=== PATIENT | female | born 2000 | race Two or more races ===

== ENCOUNTER 2025-01-09 20:52 | Emergency (ER) | payer MEDICAID, SELFPAY ==
[2025-01-09 20:53] VITALS: BMI 23.8
[2025-01-09 21:00] VITALS: BP 119/82; PULSE 89; RESP 18; TEMP 37.1; O2SAT 100
--- NOTE | 2025-01-10 04:49 | PD.EDEYE ---
ED Eye Problem RME/HPI General Chief complaint: Eye Problems Stated complaint: LEFT EYE PAIN Time Seen by Provider: 01/09/25 21:23 Arrival date/time: 01/09/25 20:52 24F with no significant PMH presents to ED with 3 weeks of L upper eyelid pain/burning after patient started using a new mascara. Patient denies eye involvement and vision changes. Limitations: no limitations Related Data Previous Rx's ?Medication ?Instructions ?Recorded erythromycin 5 mg/gram (0.5 %) eye 0.5 inch ophthalmic (eye) QID #3.5 01/09/25 ointment grams tacrolimus 0.1 % topical ointment 1 applic topical BID #30 grams 01/09/25 Allergies Allergy/AdvReac Type Severity Reaction Status Date / Time Sulfa (Sulfonamide Allergy Unknown Verified 01/09/25 20:55 Antibiotics) Review of Systems Review of Systems Systems Reviewed: All systems reviewed, normal except as documented Constitutional Constitutional: Reports system reviewed and no additional complaints, except as documented, Denies fever(s) and Denies headache(s) ENT Ears, Nose, Mouth, and Throat: Denies disequilibrium and Denies headache(s) Cardiovascular Cardiovascular: Reports system reviewed and no additional complaints, except as documented, Denies chest pain and Denies dyspnea Respiratory Respiratory: Reports system reviewed and no additional complaints, except as documented, Denies cough and Denies dyspnea Gastrointestinal Gastrointestinal: Reports system reviewed and no additional complaints, except as documented, Denies abdominal pain, Denies nausea and Denies vomiting Integumentary/Breasts Skin/Breast: Reports as per HPI, Reports rash and Reports skin pain Neurologic Neurologic: Reports system reviewed and no additional complaints, except as documented, Denies confusion, Denies disequilibrium and Denies headache(s) Psychiatric Psychiatric: Denies confusion Past Medical History Past Medical History CARDIAC: Negative Congestive Heart Failure RESPIRATORY: Negative Chronic Obstructive Pulmonary Disease (COPD) GENITOURINARY: Negative Renal Disease ENDOCRINE: Negative Diabetes Mellitus Type 1 or Diabetes Mellitus Type 2 Social History SMOKING STATUS: Current some day smoker ED Exam General Limitations: Present no limitations General appearance: Present alert and in no apparent distress Head Head exam: Present atraumatic Eye Eye exam: Present PERRL and EOMI Expanded Eye Exam Eyelids: left: erythema ENT ENT exam: Present normal exam, normal oropharynx and mucous membranes moist Neck Neck exam: Present normal inspection, full ROM and trachea midline Chest Chest inspection: Present normal inspection and symmetric chest wall rise Respiratory Respiratory exam: Present normal lung sounds bilaterally Cardiovascular Cardiovascular exam: Present regular rate, normal rhythm and normal heart sounds Abdominal Exam Abdominal exam: Present soft and normal bowel sounds Extremities Exam Extremities exam: Present normal inspection and full ROM Back Exam Back exam: Present normal inspection and full ROM Neurological Exam Neurological exam: Present alert, oriented X3 and CN II-XII intact Psychiatric Psychiatric exam: Present normal affect and normal mood Skin Skin exam: Present warm, dry, intact and normal color Course Quality Measures none Vital Signs Vital signs: Vital Signs Temperature 98.8 F 01/09/25 21:00 Pulse Rate 89 01/09/25 21:00 Respiratory Rate 18 01/09/25 21:00 Blood Pressure 119/82 01/09/25 21:00 Pulse Oximetry (%) 100 01/09/25 21:00 Oxygen Delivery Method Room Air 01/09/25 21:00 O2 at 100% on RA and WNLs Eye MDM Narrative MDM Narrative:: 24F with no significant PMH presents to ED with 3 weeks of L upper eyelid pain/burning after patient started using a new mascara. Patient denies eye involvement and vision changes. Physical exam reveals red patch on L upper eyelid near eyelashes. Some tenderness. Normal pupil response and clear conjunctiva. Patient is afebrile, calm, and alert. Likely contact dermatitis with possible mild cellulitis on top. Will give ABX cream and non-steroid anti-inflammatory agent. Patient data External records reviewed:: [facility] previous records Clinical information provided by:: patient Social determinants that could affect healthcare access:: none Patient has the following chronic illnesses:: none How is presenting disease/condition affected by chronic disease/condition?: no chronic disease Evaluation data The following diagnostics were reviewed and interpreted by me:: other (specify) (none) Lab and/or radiology exams considered but not ordered:: not ordered Interpretation Summary: n/a Medications / Prescriptions Medications or Prescriptions considered but not ordered:: not ordered Medication administrations:: n/a Consultations Consultation(s) initiated? (list below): No Diagnosis Eye Problem Differential Diagnosis: corneal abrasion, conjunctivitis, acute iritis, hyphema, periorbital cellulitis, subconjunctival hemorrhage, glaucoma, corneal ulcer, ruptured globe and other (contact dermatitis) Most likely diagnosis given after review of the tests above:: contact dermatitis Admission Indicated Admission indicated?: not indicated Admission Request Was there a request for admission?: No Disposition Plan Disposition Plan: Discharge Discharge Attestation Discharge Attestation: The patient and all family members were given an opportunity to ask questions and understood the discharge instructions. Discharge instructions specifically effects, indications for sooner follow up or return to the emergency department, and the expected course of current diagnosis. Patient condition: Stable Discharge Plan Plan Patient Disposition: HOME (Self Care) Disposition Comment: Stable Prescriptions/Referrals Prescriptions/Med Rec: New erythromycin 5 mg/gram (0.5 %) ointment 0.5 inch ophthalmic (eye) QID Qty: 3.5 0RF Rx Instructions: Use on eyelid tacrolimus 0.1 % ointment 1 applic topical BID Qty: 30 0RF Referrals: Temporary Provider,ED [Physician] - In 1 week Problem List Clinical Impression: Contact dermatitis Patient/Caregiver Discharge Instructions Education Materials: ED Contact Dermatitis Additional Instructions: Please follow-up with PCP within 24-48 hours and return immediately if symptoms worsen. Print Language: Citizen Of [place] Stand Alone Forms: Patient Portal Info Letter MILLY/ALHAJI Supervising Physician MIC Supervising Physician: Dr. Bermudez
== END 2025-01-09 21:34 | disposition home or self-care (01) ==
LOC: SERX 21:30
PROVIDERS: Emergency Provider Emergency Medicine
DX: L25.9 Unspecified contact dermatitis, unspecified cause (principal)
CPT/HCPCS: 99281

== ENCOUNTER 2025-01-29 14:38 | Emergency (ER) | payer MEDICAID, SELFPAY ==
[2025-01-29 14:49] VITALS: BP 120/75; PULSE 87; RESP 18; TEMP 37.2; O2SAT 99
--- NOTE | 2025-01-29 15:00 | XR_ITS ---
Examination: Complete OB ultrasound, less than 14 weeks, transabdominal Date and time of exam: January 29, 2025 1506 hours INDICATIONS: Pelvic cramping beginning 2 days ago Technique: Obstetrical ultrasound images less than 14 weeks performed via transabdominal imaging Findings: Uterus 8.9 cm, intrauterine gestational sac 2.0 cm corresponding to 6 weeks 6 days gestational age No pole, no cardiac activity Right ovary 2.4 cm arterial flow Left ovary 2.3 cm arterial flow IMPRESSION: Empty intrauterine gestational sac corresponding to 6 week 6 day gestational age, no pole, no cardiac activity Recommend short-term follow-up transvaginal pelvic sonography to exclude demise
--- NOTE | 2025-01-29 15:30 | PD.EDPREG ---
ED OB Contraction Preg RMI/HPI General Chief complaint: OB/Uterine Contractions Stated complaint: PREG 9 WKS, CRAMPING SINCE YEST Time Seen by Provider: 01/29/25 14:54 Source: patient Arrival date/time: 01/29/25 14:38 24-year-old female with no known medical history presents to the emergency room with a chief complaint of bilateral pelvic pain x 2 days. Patient is currently 9 weeks . She is a G2, P0 Mode of arrival: ambulatory Limitations: no limitations Related Data Previous Rx's ?Medication ?Instructions ?Recorded erythromycin 5 mg/gram (0.5 %) eye 0.5 inch ophthalmic (eye) QID #3.5 01/09/25 ointment grams tacrolimus 0.1 % topical ointment 1 applic topical BID #30 grams 01/09/25 Allergies Allergy/AdvReac Type Severity Reaction Status Date / Time Sulfa (Sulfonamide Allergy Unknown Verified 01/29/25 14:43 Antibiotics) Review of Systems Review of Systems Systems Reviewed: All systems reviewed, normal except as documented Constitutional Constitutional: Reports system reviewed and no additional complaints, except as documented, Denies fatigue, Denies fever(s), Denies headache(s) and Denies weakness Eyes Eyes: Reports system reviewed and no additional complaints, except as documented, Denies blurry vision and Denies change in vision ENT Ears, Nose, Mouth, and Throat: Reports system reviewed and no additional complaints, except as documented, Denies otalgia, Denies headache(s), Denies nasal congestion, Denies throat swelling and Denies vertigo Cardiovascular Cardiovascular: Reports system reviewed and no additional complaints, except as documented, Denies chest pain, Denies dyspnea and Denies dyspnea on exertion Respiratory Respiratory: Reports system reviewed and no additional complaints, except as documented, Denies chest congestion, Denies cough, Denies dyspnea, Denies dyspnea on exertion and Denies wheezing Gastrointestinal Gastrointestinal: Reports system reviewed and no additional complaints, except as documented, Reports abdominal pain, Reports cramping, Denies nausea and Denies vomiting Genitourinary Genitourinary: Reports system reviewed and no additional complaints, except as documented and Reports pelvic pain Musculoskeletal Musculoskeletal: Reports system reviewed and no additional complaints, except as documented and Denies back pain Integumentary/Breasts Skin/Breast: Reports system reviewed and no additional complaints, except as documented and Denies wounds Neurologic Neurologic: Reports system reviewed and no additional complaints, except as documented, Denies confusion, Denies headache(s), Denies lack of coordination, Denies vertigo and Denies weakness Psychiatric Psychiatric: Reports system reviewed and no additional complaints, except as documented, Denies anxiety, Denies confusion, Denies depression, Denies paranoia, Denies suicidal ideation and Denies tactile hallucinations Endocrine Endocrine: Reports system reviewed and no additional complaints, except as documented and Denies fatigue Hematologic/Lymphatic Hematologic/Lymphatic: Reports system reviewed and no additional complaints, except as documented and Denies lymphadenopathy Allergic/Immunologic Allergic/Immunologic: Reports system reviewed and no additional complaints, except as documented, Denies throat swelling, Denies urticaria and Denies wheezing Past Medical History Past Medical History CARDIAC: Negative Congestive Heart Failure RESPIRATORY: Negative Chronic Obstructive Pulmonary Disease (COPD) GENITOURINARY: Negative Renal Disease ENDOCRINE: Negative Diabetes Mellitus Type 1 or Diabetes Mellitus Type 2 Social History SMOKING STATUS: Never smoker ED Exam General Limitations: Present no limitations General appearance: Present alert and in no apparent distress Head Head exam: Present atraumatic Eye Eye exam: Present normal appearance, PERRL and EOMI ENT ENT exam: Present normal exam, normal oropharynx and mucous membranes moist Neck Neck exam: Present normal inspection, full ROM and trachea midline Chest Chest inspection: Present normal inspection and symmetric chest wall rise Respiratory Respiratory exam: Present normal lung sounds bilaterally Cardiovascular Cardiovascular exam: Present regular rate, normal rhythm and normal heart sounds Abdominal Exam Abdominal exam: Present soft, tenderness and normal bowel sounds Abdominal tenderness: Present suprapubic and mild Extremities Exam Extremities exam: Present normal inspection and full ROM Back Exam Back exam: Present normal inspection and full ROM Neurological Exam Neurological exam: Present alert, oriented X3 and CN II-XII intact Psychiatric Psychiatric exam: Present normal affect and normal mood Skin Skin exam: Present warm, dry, intact and normal color Course Quality Measures none Orders Category Date Time Status US OB <= 14 weeks fetus Stat Exams 01/29/25 15:00 Completed ABO/RH Type Stat Lab 01/29/25 15:28 Completed Beta HCG,Quantitative Stat Lab 01/29/25 15:28 Completed CBC Stat Lab 01/29/25 15:28 Completed CMP [Comprehensive Metabolic Panel] Stat Lab 01/29/25 15:28 Completed UA [Urinalysis] Stat Lab 01/29/25 15:48 Completed Vital Signs Vital signs: Vital Signs Temperature 99 F 04/22/25 14:49 Pulse Rate 87 01/29/25 14:49 Respiratory Rate 18 01/29/25 14:49 Blood Pressure 120/75 01/29/25 14:49 Pulse Oximetry (%) 99 01/29/25 14:49 Oxygen Delivery Method Room Air 01/29/25 14:49 O2 saturation 99% with normal limits OB/Uterine Contractions MDM Narrative MDM Narrative:: 24-year-old female with no known medical history presents to the emergency room with a chief complaint of bilateral pelvic pain x 2 days. Patient is currently 9 weeks . She is a G2, P0 Patient is hemodynamically stable and in no apparent distress. Physical examination shows some 4 out of 10 bilateral pelvic pain. The patient denies any vaginal bleeding vaginal spotting or any dysuria. CBC CMP were within normal limits. hCG was 57,523. Pelvic ultrasound was completed and at this time shows an empty intrauterine gestational sac corresponding to 6 weeks and 6 days. There is no pole there is no cardiac activity at this time. I spoke to the patient and told her that she will need a close short-term follow-up with another trance vaginal pelvic ultrasound and more blood work. I spoke to the patient that she will need to follow-up with her [facility] or return to the emergency room in the next 3 days Patient was discharged and educated to follow-up with primary care provider in the next 24 to 48 hours and return to the emergency room for any evidence of worsening signs or symptoms Patient data External records reviewed:: [facility] previous records Clinical information provided by:: patient Social determinants that could affect healthcare access:: none Patient has the following chronic illnesses:: No chronic illness How is presenting disease/condition affected by chronic disease/condition?: no chronic disease Evaluation data The following diagnostics were reviewed and interpreted by me:: lab results and radiology exam(s) Lab and/or radiology exams considered but not ordered:: Labs and radiology exams considered in order Interpretation Summary: OB ultrasound-Findings: Uterus 8.9 cm, intrauterine gestational sac 2.0 cm corresponding to 6 weeks 6 days gestational age No pole, no cardiac activity Right ovary 2.4 cm arterial flow Left ovary 2.3 cm arterial flow IMPRESSION: Empty intrauterine gestational sac corresponding to 6 week 6 day gestational age, no pole, no cardiac activity Recommend short-term follow-up transvaginal pelvic sonography to exclude demise Medications / Prescriptions Medications or Prescriptions considered but not ordered:: No medication given Medication administrations:: No medication given Consultations Consultation(s) initiated? (list below): No Diagnosis OB Contractions Differential Diagnosis: other (Threatened /spontaneous /pelvic pain) Most likely diagnosis given after review of the tests above:: Threatened Admission Indicated Admission indicated?: not indicated Explain why admission is indicated or not indicated:: N/A Admission Request Was there a request for admission?: No Disposition Plan Disposition Plan: Discharge Discharge Attestation Discharge Attestation: The patient and all family members were given an opportunity to ask questions and understood the discharge instructions. Discharge instructions specifically effects, indications for sooner follow up or return to the emergency department, and the expected course of current diagnosis. Patient condition: Stable Discharge Plan Plan Patient Disposition: HOME (Self Care) Disposition Comment: Stable Prescriptions/Referrals Prescriptions/Med Rec: No Action erythromycin 5 mg/gram (0.5 %) ointment 0.5 inch ophthalmic (eye) QID Qty: 3.5 0RF Rx Instructions: Use on eyelid tacrolimus 0.1 % ointment 1 applic topical BID Qty: 30 0RF Referrals: No Primary/Family,Physician [Primary Care Provider] - In 1 week Problem List Clinical Impression: Pelvic pain affecting , , spontaneous threatened Patient/Caregiver Discharge Instructions Education Materials: ED Possible Miscarriage ..., ED Pelvic Pain, Unknown Cause Additional Instructions: Por favor, acuda a moore ginec?logo/obstetra en las pr?ximas 24 a 48 horas. Si no puede cheikh a moore ginec?logo/obstetra en mil plazo, regrese a urgencias en las pr?ximas 72 horas para repetir la ecograf?a y los an?lisis de charo. Si observa alg?n empeoramiento de los signos o s?ntomas, lauren sangrado vaginal, regrese a urgencias inmediatamente. Print Language: [place] Stand Alone Forms: Hilda Award Info., Work/School Release, Patient Portal Info Letter PA/MANAGER RESTAURANT Supervising Physician PA/MANAGER RESTAURANT Supervising Physician: Dr. Edmondson
[2025-01-29 15:48] LABS: Basophils % (Auto) 0 % (0-2.5); Eosinophils % (Auto) 0 % (0-10); Hematocrit 33.5 % (36.0-46.0); Hemoglobin 11.5 g/dL (12.0-16.0); Immature Granulocytes % (Auto) 0 % (0-0); Immature Granulocytes Auto 0.02 Thou/mm3 (0.00-0.00); Lymphocytes # (Auto) 2.4 Thou/mm3 (1.0-4.8); Lymphocytes % (Auto) 32 % (10-50); Mean Corpuscular HGB Conc 34.3 g/dl (31.0-37.0); Mean Corpuscular Hemoglobin 30.5 pg (25.0-35.0); Mean Corpuscular Volume 89 fL (80-100); Monocytes # (Auto) 0.8 Thou/mm3 (0.0-0.8); Monocytes % (Auto) 11 % (0-12); Neutrophils # (Auto) 4.2 Thou/mm3 (1.8-7.7); Neutrophils % (Auto) 56 % (37-80); Nucleated Red Blood Cell % 0 /100 WBC (0); Platelet Count 218 Thou/mm3 (140-440); RDW Standard Deviation 42.4 fL (36.4-46.3); Red Blood Count 3.77 Miln/mm3 (4.00-5.20); White Blood Count 7.5 Thou/mm3 (3.6-11.0)
[2025-01-29 16:03] LABS: Collection Type, Urine Clean Catch; WBC,Urine 0 /hpf (0-5)
[2025-01-29 16:10] LABS: Anion Gap 5 (7-16); BUN/Creatinine Ratio 13 Ratio (12-20); Blood Urea Nitrogen 8 mg/dL (9-23); Carbon Dioxide 22.6 mMol/L (20.0-31.0); Chloride 108 mMol/L (98-107); Creatinine (Component) 0.6 mg/dL (0.6-1.3); Glucose 73 mg/dL (74-106); Osmolality,Calculated 269 (275-295); Potassium 3.5 mMol/L (3.4-5.1); Sodium 136 mMol/L (136-145); eGFR > 60 See Note
[2025-01-29 16:11] LABS: Alanine Aminotransferase 15 U/L (10-49); Albumin, Serum 4.3 gm/dL (3.5-5.0); Albumin/Globulin Ratio 1.6 (1.2-2.2); Alkaline Phosphatase 51 U/L (46-116); Aspartate Amino Transferase 19 U/L (0-34); Bilirubin,Total 0.9 mg/dL (0.3-1.2); Globulin 2.7 gm/dL (2.3-3.5)
[2025-01-29 16:26] LABS: Bacteria,Urine Rare; Bilirubin,Urine Negative (Negative); Blood,Urine Negative (Negative); Clarity,Urine Clear (Clear/Hazy); Color,Urine Colorless (Lt Yel-Yel); Glucose, Urine Negative (Negative); Ketones,Urine Negative (Negative); Leukocyte Esterase,Urine Negative (Negative); Nitrite,Urine Negative (Negative); PH,Urine 6.5 (5.0-7.0); Protein,Urine Negative (Neg - Trace); RBC,Urine 1 /hpf (0-3); Specific Gravity,Urine 1.011 (1.001-1.035); Squamous Epithelial Cell,Urine 1 /hpf (0-5); Urobilinogen,Urine Negative mg/dL (0.0-1.0)
[2025-01-29 16:47] LABS: Beta HCG,Quantitative 57523 mIU/mL (<5.0)
== END 2025-01-29 17:56 | disposition home or self-care (01) ==
PROVIDERS: Nurse Practitioner Family; Emergency Provider Family Medicine
DX: O20.0 Threatened abortion (principal); Z3A.01 Less than 8 weeks gestation of pregnancy
CPT/HCPCS: 36415; 76801; 80053; 81001; 84702; 85025; 86900; 86901; 99284

== ENCOUNTER 2025-02-01 09:48 | Emergency (ER) | payer MEDICAID, SELFPAY ==
[2025-02-01 09:48] VITALS: BMI 23.8
--- NOTE | 2025-02-01 09:51 | XR_ITS ---
Examination: Complete OB ultrasound, less than 14 weeks, transabdominal Date and time of exam: February 01, 2025 1008 hours INDICATIONS: Pelvic sonogram January 29, 2025 M.D. intrauterine gestational sac no pole and no cardiac activity, pelvic cramping this week Technique: Obstetrical ultrasound images less than 14 weeks performed via transabdominal imaging Findings: A normal shaped single intrauterine gestation is present in the uterus. CRL 0.5 cm correspondences 6 weeks 1 day gestational age Cardiac motion 100 bpm Ultrasonographic survey of visible and placental structures unremarkable. Amniotic fluid volume appears appropriate for this estimated gestational age. Right ovary 3.1 cm arterial flow Left ovary 2.7 cm arterial flow IMPRESSION: Viable intrauterine gestation 6 weeks 1 day.
[2025-02-01 09:54] VITALS: BP 120/74; PULSE 82; RESP 18; TEMP 37.1; O2SAT 99; BMI 23.8
--- NOTE | 2025-02-01 11:19 | EDNOTE_ITS ---
<Statement entered by Marina Horner MD - 02/02/25 14:29> As co-signing physician, I was present and available for consult prn. I concur with the plan and care as documented by the midlevel provider. ED Recheck Abnl Lab Rx-RME/HPI General Chief Complaint: Recheck/Abnormal Lab/Rx Stated Complaint: 7weeks OB- BACK FOR BLOOD WORK Time Seen by Provider: 02/01/25 10:10 Arrival date/time: 02/01/25 09:48 24-year-old female presents to the emergency department stating she was instructed to return today for repeat lab work and ultrasound patient was seen 2 days ago for possible threatened Limitations: no limitations Related Data Previous Rx's ?Medication ?Instructions ?Recorded erythromycin 5 mg/gram (0.5 %) eye 0.5 inch ophthalmic (eye) QID #3.5 01/09/25 ointment grams tacrolimus 0.1 % topical ointment 1 applic topical BID #30 grams 01/09/25 Allergies Allergy/AdvReac Type Severity Reaction Status Date / Time Sulfa (Sulfonamide Allergy Unknown Verified 02/01/25 09:51 Antibiotics) Review of Systems Review of Systems Systems Reviewed: All systems reviewed, normal except as documented Constitutional Constitutional: Reports system reviewed and no additional complaints, except as documented, Denies fever(s) and Denies headache(s) Eyes Eyes: Reports system reviewed and no additional complaints, except as documented and Denies blurry vision ENT Ears, Nose, Mouth, and Throat: Reports system reviewed and no additional complaints, except as documented, Denies headache(s), Denies nasal congestion and Denies nasal discharge Cardiovascular Cardiovascular: Reports system reviewed and no additional complaints, except as documented, Denies chest pain and Denies dyspnea Respiratory Respiratory: Reports system reviewed and no additional complaints, except as documented, Denies chest congestion, Denies cough and Denies dyspnea Gastrointestinal Gastrointestinal: Reports system reviewed and no additional complaints, except as documented and Denies abdominal pain Genitourinary Genitourinary: Reports system reviewed and no additional complaints, except as documented, Denies abnormal vaginal bleeding and Reports pelvic pain Integumentary/Breasts Skin/Breast: Reports system reviewed and no additional complaints, except as documented and Denies rash Neurologic Neurologic: Reports system reviewed and no additional complaints, except as documented, Reports as per HPI and Denies headache(s) Past Medical History Past Medical History CARDIAC: Negative Congestive Heart Failure RESPIRATORY: Negative Chronic Obstructive Pulmonary Disease (COPD) GENITOURINARY: Negative Renal Disease ENDOCRINE: Negative Diabetes Mellitus Type 1 or Diabetes Mellitus Type 2 Social History SMOKING STATUS: Never smoker ED Exam General Limitations: Present no limitations General appearance: Present alert and in no apparent distress Head Head exam: Present atraumatic, normocephalic and normal inspection Eye Eye exam: Present normal appearance, PERRL and EOMI; Absent conjunctival injection ENT ENT exam: Present normal exam, normal oropharynx and mucous membranes moist Neck Neck exam: Present normal inspection, full ROM and trachea midline Chest Chest inspection: Present normal inspection and symmetric chest wall rise Respiratory Respiratory exam: Present normal lung sounds bilaterally Cardiovascular Cardiovascular exam: Present regular rate, normal rhythm and normal heart sounds Abdominal Exam Abdominal exam: Present soft and normal bowel sounds; Absent distention, tenderness, guarding, rebound or rigidity Extremities Exam Extremities exam: Present normal inspection and full ROM Back Exam Back exam: Present normal inspection and full ROM Neurological Exam Neurological exam: Present alert, oriented X3 and CN II-XII intact Psychiatric Psychiatric exam: Present normal affect and normal mood Skin Skin exam: Present warm, dry, intact and normal color Course Quality Measures none Orders Category Date Time Status US OB <= 14 weeks fetus Stat Exams 02/01/25 09:51 Completed Beta HCG,Quantitative Stat Lab 02/01/25 10:05 Completed Vital Signs Vital signs: Vital Signs Temperature 98.7 F 02/01/25 09:54 Pulse Rate 82 02/01/25 09:54 Respiratory Rate 18 02/01/25 09:54 Blood Pressure 120/74 02/01/25 09:54 Pulse Oximetry (%) 99 02/01/25 09:54 Oxygen Delivery Method Room Air 02/01/25 09:54 O2 saturation 99% room air with normal limits Recheck / Abnormal Lab / Rx MDM Narrative MDM Narrative:: 24-year-old female presents to the emergency department stating she was instructed to return today for repeat lab work and ultrasound patient was seen 2 days ago for possible threatened On exam patient well-appearing patient does not appear ill or toxic in no acute distress Lab work and ultrasound obtained patient is viable at this time hCG has increased Patient discharged home in no distress to follow-up with [facility] in the next 24 to 48 hours and for any worsening symptoms to return to the ER immediately Patient data External records reviewed:: [facility] previous records Clinical information provided by:: patient Social determinants that could affect healthcare access:: none Patient has the following chronic illnesses:: None How is presenting disease/condition affected by chronic disease/condition?: no chronic disease Evaluation data The following diagnostics were reviewed and interpreted by me:: lab results and radiology exam(s) Lab and/or radiology exams considered but not ordered:: Labs radiology obtain Interpretation Summary: Reviewed by me Medications / Prescriptions Medications or Prescriptions considered but not ordered:: Given no meds Medication administrations:: No meds Consultations Consultation(s) initiated? (list below): No Diagnosis Recheck Differential Diagnosis: other (Threatened , missed , early ) Most likely diagnosis given after review of the tests above:: Early Admission Indicated Admission indicated?: not indicated Admission Request Was there a request for admission?: No Disposition Plan Disposition Plan: Discharge Discharge Attestation Discharge Attestation: The patient and all family members were given an opportunity to ask questions and understood the discharge instructions. Discharge instructions specifically effects, indications for sooner follow up or return to the emergency department, and the expected course of current diagnosis. Patient condition: Stable Discharge Plan Plan Patient Disposition: HOME (Self Care) Disposition Comment: Stable Prescriptions/Referrals Prescriptions/Med Rec: No Action erythromycin 5 mg/gram (0.5 %) ointment 0.5 inch ophthalmic (eye) QID Qty: 3.5 0RF Rx Instructions: Use on eyelid tacrolimus 0.1 % ointment 1 applic topical BID Qty: 30 0RF Referrals: No Primary/Family,Physician [Primary Care Provider] - 02/04/25 Problem List Clinical Impression: Viable Patient/Caregiver Discharge Instructions Education Materials: What Is Care? Additional Instructions: Please follow up with your primary care doctor in the next 24-48hrs for any worsening symptoms return here immediately Print Language: Yoruba Stand Alone Forms: Hilda Award Info., Patient Portal Info Letter PA/RESEARCH GEOLOGIST Supervising Physician PA/ALHAJI Supervising Physician: Dr. Horner
[2025-02-01 11:25] LABS: Beta HCG,Quantitative 71615 mIU/mL (<5.0)
== END 2025-02-01 11:44 | disposition home or self-care (01) ==
PROVIDERS: Nurse Practitioner Primary Care; Emergency Provider Emergency Medicine
DX: O26.891 Other specified pregnancy related conditions, first trimester (principal); R10.2 Pelvic and perineal pain
CPT/HCPCS: 36415; 76801; 84702; 99284

== ENCOUNTER 2025-02-13 23:56 | Emergency (ER) | payer MEDICAID, SELFPAY ==
[2025-02-13 23:57] VITALS: BMI 24.4
[2025-02-14 01:18] VITALS: BP 115/77; PULSE 80; RESP 18; TEMP 36.9; O2SAT 100
--- NOTE | 2025-02-14 01:37 | XR_ITS ---
Examination: OB Transvaginal ultrasound of the pelvis, complete Technique: Transvaginal sonographic images pelvis performed using azul scale imaging Exam date and time: February 14, 2025 0254 hours INDICATIONS: Vaginal bleeding beginning 2 days ago FINDINGS: Uterus 10.7 cm endometrial stripe not visualized pole 0.6 cm corresponds to 6 weeks 3 days gestational age No cardiac motion Mild fluid in cervix Right ovary 2.3 cm arterial flow Left ovary obscured by bowel gas. IMPRESSION: Intrauterine gestation corresponding to 6 weeks 3 days gestational age, however no cardiac activity. Recommend short term follow-up transvaginal pelvic sonography to exclude embryonic demise.
[2025-02-14 02:28] LABS: Basophils % (Auto) 0 % (0-2.5); Eosinophils % (Auto) 0 % (0-10); Hematocrit 32.5 % (36.0-46.0); Hemoglobin 11.3 g/dL (12.0-16.0); Immature Granulocytes % (Auto) 0 % (0-0); Immature Granulocytes Auto 0.01 Thou/mm3 (0.00-0.00); Lymphocytes # (Auto) 2.8 Thou/mm3 (1.0-4.8); Lymphocytes % (Auto) 40 % (10-50); Mean Corpuscular HGB Conc 34.8 g/dl (31.0-37.0); Mean Corpuscular Hemoglobin 30.9 pg (25.0-35.0); Mean Corpuscular Volume 89 fL (80-100); Monocytes # (Auto) 0.7 Thou/mm3 (0.0-0.8); Monocytes % (Auto) 10 % (0-12); Neutrophils # (Auto) 3.6 Thou/mm3 (1.8-7.7); Neutrophils % (Auto) 50 % (37-80); Nucleated Red Blood Cell % 0 /100 WBC (0); Platelet Count 227 Thou/mm3 (140-440); RDW Standard Deviation 40.9 fL (36.4-46.3); Red Blood Count 3.66 Miln/mm3 (4.00-5.20); White Blood Count 7.1 Thou/mm3 (3.6-11.0)
[2025-02-14 03:02] LABS: Alanine Aminotransferase 7 U/L (10-49); Albumin, Serum 4.4 gm/dL (3.5-5.0); Albumin/Globulin Ratio 1.6 (1.2-2.2); Alkaline Phosphatase 56 U/L (46-116); Anion Gap 6 (7-16); Aspartate Amino Transferase 14 U/L (0-34); BUN/Creatinine Ratio 20 Ratio (12-20); Bilirubin,Total 0.4 mg/dL (0.3-1.2); Blood Urea Nitrogen 10 mg/dL (9-23); Calcium 9.1 mg/dL (8.3-10.6); Calcium (Corrected) 9.1 mg/dL (8.5-10.1); Carbon Dioxide 25.6 mMol/L (20.0-31.0); Chloride 105 mMol/L (98-107); Creatinine (Component) 0.5 mg/dL (0.6-1.3); Estimated Creatinine Clearance 135.7 mL/min (>60); Globulin 2.7 gm/dL (2.3-3.5); Glucose 93 mg/dL (74-106); Osmolality,Calculated 272 (275-295); Potassium 3.6 mMol/L (3.4-5.1); Sodium 137 mMol/L (136-145); Total Protein 7.1 gm/dL (5.7-8.2); eGFR > 60 See Note
--- NOTE | 2025-02-14 03:13 | EDNOTE_ITS ---
ED OB Contraction Preg RMI/HPI General Chief complaint: Vaginal Bleeding Stated complaint: VAGINAL BLEEDING, ABD PAIN, 9WKS Time Seen by Provider: 02/14/25 01:36 Arrival date/time: 02/13/25 23:56 24F at approximately 8-9 weeks and with no significant PMH presents to ED with 1 day of pelvic pain/cramping and vaginal bleeding. Limitations: no limitations Related Data Previous Rx's ?Medication ?Instructions ?Recorded erythromycin 5 mg/gram (0.5 %) eye 0.5 inch ophthalmic (eye) QID #3.5 01/09/25 ointment grams tacrolimus 0.1 % topical ointment 1 applic topical BID #30 grams 01/09/25 Allergies Allergy/AdvReac Type Severity Reaction Status Date / Time Sulfa (Sulfonamide Allergy Unknown Verified 02/13/25 23:57 Antibiotics) Review of Systems Review of Systems Systems Reviewed: All systems reviewed, normal except as documented Constitutional Constitutional: Reports system reviewed and no additional complaints, except as documented, Denies fever(s) and Denies headache(s) ENT Ears, Nose, Mouth, and Throat: Denies disequilibrium and Denies headache(s) Cardiovascular Cardiovascular: Reports system reviewed and no additional complaints, except as documented, Denies chest pain and Denies dyspnea Respiratory Respiratory: Reports system reviewed and no additional complaints, except as documented, Denies cough and Denies dyspnea Gastrointestinal Gastrointestinal: Reports system reviewed and no additional complaints, except as documented, Denies abdominal pain, Denies nausea and Denies vomiting Genitourinary Genitourinary: Reports as per HPI, Reports abnormal vaginal bleeding and Reports pelvic pain Neurologic Neurologic: Reports system reviewed and no additional complaints, except as documented, Denies confusion, Denies disequilibrium and Denies headache(s) Psychiatric Psychiatric: Denies confusion Past Medical History Past Medical History CARDIAC: Negative Congestive Heart Failure RESPIRATORY: Negative Chronic Obstructive Pulmonary Disease (COPD) GENITOURINARY: Negative Renal Disease ENDOCRINE: Negative Diabetes Mellitus Type 1 or Diabetes Mellitus Type 2 Social History SMOKING STATUS: Former smoker ED Exam General Limitations: Present no limitations General appearance: Present alert and in no apparent distress Head Head exam: Present atraumatic Eye Eye exam: Present normal appearance, PERRL and EOMI ENT ENT exam: Present normal exam, normal oropharynx and mucous membranes moist Neck Neck exam: Present normal inspection, full ROM and trachea midline Chest Chest inspection: Present normal inspection and symmetric chest wall rise Respiratory Respiratory exam: Present normal lung sounds bilaterally Cardiovascular Cardiovascular exam: Present regular rate, normal rhythm and normal heart sounds Abdominal Exam Abdominal exam: Present soft and normal bowel sounds Extremities Exam Extremities exam: Present normal inspection and full ROM Back Exam Back exam: Present normal inspection and full ROM Neurological Exam Neurological exam: Present alert, oriented X3 and CN II-XII intact Psychiatric Psychiatric exam: Present normal affect and normal mood Skin Skin exam: Present warm, dry, intact and normal color Course Quality Measures none Orders Category Date Time Status US OB transvaginal Stat Exams 02/14/25 01:37 Taken Beta HCG,Quantitative Stat Lab 02/14/25 02:01 Completed CBC Stat Lab 02/14/25 02:01 Completed CMP [Comprehensive Metabolic Panel] Stat Lab 02/14/25 02:01 Completed Urinalysis, C/S if Indicated Stat Lab 02/14/25 01:37 Ordered Vital Signs Vital signs: Vital Signs Temperature 98.4 F 02/14/25 01:18 Pulse Rate 80 02/14/25 01:18 Respiratory Rate 18 02/14/25 01:18 Blood Pressure 115/77 02/14/25 01:18 Pulse Oximetry (%) 100 02/14/25 01:18 Oxygen Delivery Method Room Air 02/14/25 01:18 O2 at 100% on RA and WNLs Vaginal Bleeding MDM Narrative MDM Narrative: 24F at approximately 8-9 weeks and with no significant PMH presents to ED with 1 day of pelvic pain/cramping and vaginal bleeding. Physical exam reveals well-appearing female. Patient is afebrile, calm, and alert. US demise. Beta HCG 25k, much lower than 2 weeks ago. Minimal anemia. O+. Patient data External records reviewed:: [facility] previous records Clinical information provided by:: patient Social determinants that could affect healthcare access:: none Patient has the following chronic illnesses:: none How is presenting disease/condition affected by chronic disease/condition?: no chronic disease Evaluation data The following diagnostics were reviewed and interpreted by me:: lab results and radiology exam(s) Lab and/or radiology exams considered but not ordered:: ordered Interpretation Summary: above Medications / Prescriptions Medications or Prescriptions considered but not ordered:: not ordered Medication administrations:: n/a Consultations Consultation(s) initiated? (list below): No Diagnosis Vaginal Bleeding Differential Diagnosis: missed , threatened , dysfunctional uterine bleeding, menometrorrhagia, incomplete , ectopic without intrauterine , vaginal bleeding and other (incomplete miscarriage) Most likely diagnosis given after review of the tests above:: incomplete miscarriage Admission Indicated Admission indicated?: not indicated Admission Request Was there a request for admission?: No Disposition Plan Disposition Plan: Discharge Discharge Attestation Discharge Attestation: The patient and all family members were given an opportunity to ask questions and understood the discharge instructions. Discharge instructions specifically effects, indications for sooner follow up or return to the emergency department, and the expected course of current diagnosis. Patient condition: Stable Discharge Plan Plan Patient Disposition: HOME (Self Care) Discharge Disposition comment: Stable Prescriptions/Referrals Prescriptions/Med Rec: No Action erythromycin 5 mg/gram (0.5 %) ointment 0.5 inch ophthalmic (eye) QID Qty: 3.5 0RF Rx Instructions: Use on eyelid tacrolimus 0.1 % ointment 1 applic topical BID Qty: 30 0RF Referrals: No Primary/Family,Physician [Primary Care Provider] - In 1 week Problem List Clinical Impression: Incomplete miscarriage Patient/Caregiver Discharge Instructions Education Materials: ED Miscarriage, Incomplete Additional Instructions: Please follow-up with PCP/OBYGN within 24-48 hours and return immediately if symptoms worsen. Print Language: Estonian Stand Alone Forms: Work/School Release, Patient Portal Info Letter PA/BOTTLE WASHER Supervising Physician MILLY/BOTTLE WASHER Supervising Physician: Dr. Bermudez
[2025-02-14 03:35] LABS: Beta HCG,Quantitative 27641 mIU/mL (<5.0)
--- NOTE | 2025-02-14 03:45 | PRELIM_ITS ---
Obstetric ultrasound (transvaginal). February 14, 2025 at 0253 hours Clinical history: Pain/bleeding; 9 weeks Technique: Real-time ultrasound was performed using Duplex scanning including arterial inflow, venous outflow, color and spectral Doppler analysis of the right ovary. Comparison: None. Findings: Uterus is 10.7 x 5.8 x 6.2 cm. Single intrauterine gestation. Small fluid in the cervical canal. No heart motion. Right ovary is 2.1 x 1.6 x 2.3 cm. Left ovary is not visualized. Right ovary is normal Doppler flow. Gestational sac is 2.6 cm in diameter consistent with 7 weeks 4 days. pole is 6 mm long, consistent with 6 weeks 3 days. Normal yolk sac. Impression: Intrauterine gestation with demise. Discussion Details: Results verbally communicated to : Dr. Azar at 03:39 AM 02/14/2025 Report Electronically Signed By: Ryland Seymour 02/14/2025 3:45:01 AM [EST]
== END 2025-02-14 04:15 | disposition home or self-care (01) ==
PROVIDERS: Physician Assistant; Emergency Provider Emergency Medicine
DX: O03.4 Incomplete spontaneous abortion without complication (principal)
CPT/HCPCS: 36415; 76817; 80053; 81001; 84702; 85025; 99284

== ENCOUNTER 2025-02-16 01:11 | Emergency (ER) | payer MEDICAID, SELFPAY ==
[2025-02-16 01:13] VITALS: BMI 24.4
[2025-02-16 01:19] VITALS: BP 117/73; PULSE 81; RESP 19; TEMP 36.6; O2SAT 98
--- NOTE | 2025-02-16 01:25 | PD.EDRME ---
Rapid Medical Screening Exam RME Arrival date/time: 02/16/25 01:11 This is a case of a 24-year-old female who came in in the emergency room due to severe pelvic pain and vaginal bleeding patient had ultrasound in [facility] and noted demise due to severity of pelvic pain this patient decided to start consult here in the emergency room Chief Complaint: Urogenital-Female Time Seen by Provider: 02/16/25 01:16 Vital signs: Vital Signs Temperature 97.8 F 02/16/25 01:19 Pulse Rate 81 02/16/25 01:19 Respiratory Rate 19 02/16/25 01:19 Blood Pressure 117/73 02/16/25 01:19 Pulse Oximetry (%) 98 02/16/25 01:19 Oxygen Delivery Method Room Air 02/16/25 01:19
--- NOTE | 2025-02-16 01:42 | PC.NURSE ---
RECEIVED VERBAL ORDERS FROM ALHAJI BARRON TO STOP LAB AND US ORDERS.
--- NOTE | 2025-02-16 02:04 | PD.EDPREG ---
ED OB Contraction Preg RMI/HPI General Chief complaint: Urogenital-Female Stated complaint: POSSIBLE MISCARRIAGE Time Seen by Provider: 02/16/25 01:16 Arrival date/time: 02/16/25 01:11 This is a case of 34-year-old female who came into the emergency room due to pelvic cramping with mild vaginal spotting patient is a 2 para 0 with 1 miscarriage LMP is unknown patient is irregularly she remembered that her last period was November of this year patient was seen here 3 times initial visit was January 29, 2025 where she was diagnosed to have threatened ultrasound was performed and noted that the patient has intrauterine 6 weeks and 3 days beta-hCG was monitored initial beta-hCG is 57,523 patient returned in January 2024 and the beta-hCG was 71,615 patient returned in the emergency room February 14, 2025 because of vaginal bleeding noted that the ultrasound still on intrauterine 6 weeks and 3 days but no cardiac activity patient beta-hCG went down [id number] she was diagnosed to have incomplete and advised to follow-up with the OB business support manager due to a pelvic cramping and vaginal spotting this patient decided to start consult here in the emergency room Limitations: no limitations RME / HPI RME / HPI Narrative: 02/16/25 01:11 This is a case of a 24-year-old female who came in in the emergency room due to severe pelvic pain and vaginal bleeding patient had ultrasound in [facility] and noted demise due to severity of pelvic pain this patient decided to start consult here in the emergency room Related Data Previous Rx's ?Medication ?Instructions ?Recorded erythromycin 5 mg/gram (0.5 %) eye 0.5 inch ophthalmic (eye) QID #3.5 01/09/25 ointment grams tacrolimus 0.1 % topical ointment 1 applic topical BID #30 grams 01/09/25 Allergies Allergy/AdvReac Type Severity Reaction Status Date / Time Sulfa (Sulfonamide Allergy Unknown Verified 02/13/25 23:57 Antibiotics) Review of Systems Review of Systems Systems Reviewed: All systems reviewed, normal except as documented Constitutional Constitutional: Reports system reviewed and no additional complaints, except as documented Cardiovascular Cardiovascular: Reports system reviewed and no additional complaints, except as documented Respiratory Respiratory: Reports system reviewed and no additional complaints, except as documented Gastrointestinal Gastrointestinal: Reports system reviewed and no additional complaints, except as documented and Reports as per HPI Genitourinary Genitourinary: Reports abnormal vaginal bleeding, Denies dysuria and Reports pelvic pain Neurologic Neurologic: Reports system reviewed and no additional complaints, except as documented Past Medical History Past Medical History CARDIAC: Negative Congestive Heart Failure RESPIRATORY: Negative Chronic Obstructive Pulmonary Disease (COPD) GENITOURINARY: Negative Renal Disease ENDOCRINE: Negative Diabetes Mellitus Type 1 or Diabetes Mellitus Type 2 Social History SMOKING STATUS: Never smoker ED Exam General Limitations: Present no limitations General appearance: Present alert and in no apparent distress Head Head exam: Present atraumatic Eye Eye exam: Present normal appearance, PERRL and EOMI ENT ENT exam: Present normal exam, normal oropharynx and mucous membranes moist Neck Neck exam: Present normal inspection, full ROM and trachea midline Chest Chest inspection: Present normal inspection and symmetric chest wall rise Respiratory Respiratory exam: Present normal lung sounds bilaterally Cardiovascular Cardiovascular exam: Present regular rate, normal rhythm and normal heart sounds Abdominal Exam Abdominal exam: Present soft and normal bowel sounds; Absent distention, tenderness, guarding, rebound, rigidity, diminished bowel sounds, hyperactive bowel sounds, hypoactive bowel sounds, organomegaly, trauma, obturator sign, Patel's sign, Rovsing's sign, tenderness at McBurney's Point or ascites Extremities Exam Extremities exam: Present normal inspection and full ROM Back Exam Back exam: Present normal inspection and full ROM Neurological Exam Neurological exam: Present alert, oriented X3, CN II-XII intact, normal gait and motor sensory deficit Psychiatric Psychiatric exam: Present normal affect and normal mood Skin Skin exam: Present warm, dry, intact and normal color Course Quality Measures none Orders Category Date Time Status US OB <= 14 weeks fetus Stat Exams 02/16/25 01:23 Stop Req Vital Signs Vital signs: Vital Signs Temperature 97.8 F 02/16/25 01:19 Pulse Rate 81 02/16/25 01:19 Respiratory Rate 19 02/16/25 01:19 Blood Pressure 117/73 02/16/25 01:19 Pulse Oximetry (%) 98 02/16/25 01:19 Oxygen Delivery Method Room Air 02/16/25 01:19 Oxygen saturation in room air 98% WNL OB/Uterine Contractions MDM Narrative MDM Narrative:: This is a case of 34-year-old female who came into the emergency room due to pelvic cramping with mild vaginal spotting patient is a 2 para 0 with 1 miscarriage LMP is unknown patient is irregularly she remembered that her last period was November of this year patient was seen here 3 times initial visit was January 29, 2025 where she was diagnosed to have threatened ultrasound was performed and noted that the patient has intrauterine 6 weeks and 3 days beta-hCG was monitored initial beta-hCG is 57,523 patient returned in January 2024 and the beta-hCG was 71,615 patient returned in the emergency room February 14, 2025 because of vaginal bleeding noted that the ultrasound still on intrauterine 6 weeks and 3 days but no cardiac activity patient beta-hCG went down [id number] she was diagnosed to have incomplete and advised to follow-up with the OB business support manager due to a pelvic cramping and vaginal spotting this patient decided to start consult here in the emergency room physical examination patient is awake alert oriented not in distress nontoxic looking not tachycardic not tachypneic afebrile nonhypoxic no signs and symptoms of dehydration no signs and symptoms of sepsis patient abdominal exam is benign nonsurgical no guarding no rebound no rigidity no pelvic tenderness no CVA tenderness no bladder tenderness at this time I discussed with Dr Carbajal regarding patient constipation history and physical examination I was advised not to perform any blood test nor pelvic ultrasound since the patient was here 2 days ago a OB consult was done spoke to Dr. Mercado discussed patient condition history and physical examination relayed the result of the previous blood test and ultrasound since the patient is not having a vaginal bleeding or severe pelvic pain patient will be discharged home with stable condition Tylenol was given for pain patient was advised to follow-up with the OB clinic were Dr. Mercado for possible D&C patient was advised if there is a severe pelvic pain and vaginal bleeding she needs to return in the emergency room immediately or call 911 patient agreed with the treatment plan and discharge patient understood the discharge instruction patient discharged with stable condition and steady gait Patient data External records reviewed:: [facility] previous records Clinical information provided by:: patient Social determinants that could affect healthcare access:: none Patient has the following chronic illnesses:: No chronic illness How is presenting disease/condition affected by chronic disease/condition?: no chronic disease Evaluation data The following diagnostics were reviewed and interpreted by me:: lab results and radiology exam(s) Lab and/or radiology exams considered but not ordered:: Reviewed Interpretation Summary: Not indicated Medications / Prescriptions Medications or Prescriptions considered but not ordered:: Given Medication administrations:: Given Consultations Consultation(s) initiated? (list below): Yes Consultation #1 (Physician, Specialty, Details): Dr Mercado Time: 02:00 Diagnosis OB Contractions Differential Diagnosis: other (Incomplete spontaneous threatened ) Most likely diagnosis given after review of the tests above:: Incomplete threatened spontaneous Admission Indicated Admission indicated?: not indicated Explain why admission is indicated or not indicated:: Not indicated Admission Request Was there a request for admission?: No Admission Attestation Admission request attestation: Not indicated Disposition Plan Disposition Plan: Discharge Discharge Attestation Discharge Attestation: The patient and all family members were given an opportunity to ask questions and understood the discharge instructions. Discharge instructions specifically effects, indications for sooner follow up or return to the emergency department, and the expected course of current diagnosis. Patient condition: Stable Discharge Plan Plan Patient Disposition: HOME (Self Care) Discharge Disposition comment: Stable Prescriptions/Referrals Prescriptions/Med Rec: No Action erythromycin 5 mg/gram (0.5 %) ointment 0.5 inch ophthalmic (eye) QID Qty: 3.5 0RF Rx Instructions: Use on eyelid tacrolimus 0.1 % ointment 1 applic topical BID Qty: 30 0RF Referrals: Mahnaz Newman FNP ([facility]) [Primary Care Provider] - In 1 week Problem List Clinical Impression: Incomplete Patient/Caregiver Discharge Instructions Education Materials: ED Miscarriage, Incomplete Additional Instructions: It is very important to go to OB clinic on Tuesday ( Dr Mercado) to see an OB business support manager phone number [phone] for further evaluation and treatment of incomplete possible D&C for any worsening symptoms vaginal bleeding fever chills pelvic pain or cramping return to the emergency room immediately or call 911 follow-up with your primary care physician in 2 days for reevaluation Print Language: Cambodian Stand Alone Forms: Hilda Award Info., Patient Portal Info Letter MILLY/ALHAJI Supervising Physician MIC Supervising Physician: Dr Carbajal
== END 2025-02-16 02:12 | disposition home or self-care (01) ==
PROVIDERS: Emergency Provider Emergency Medicine; PCP Nurse Practitioner Primary Care
DX: O03.4 Incomplete spontaneous abortion without complication (principal)
CPT/HCPCS: 80053; 84702; 85025; 99281

== ENCOUNTER 2025-02-16 09:15 | Day surgery (SDC) | payer MEDICAID, SELFPAY ==
[2025-02-16] VITALS (8 sets, daily range): BP systolic 94–108; BP diastolic 52–77; PULSE 69–83; RESP 12–20; TEMP 36.2–37.1; O2SAT 98–100; BMI 24.4
--- NOTE | 2025-02-16 09:44 | EDNOTE_ITS ---
ED OB Contraction Preg RMI/HPI General Chief complaint: Vaginal Bleeding Stated complaint: MISCARRIAGE Time Seen by Provider: 02/16/25 09:33 Arrival date/time: 02/16/25 09:15 24-year-old female G2, presents emergency department today for complaints of vaginal bleeding and pelvic pain patient reports that she has been having pain and bleeding intermittently since 29 January. Patient reports no fever nausea or vomiting patient reports that she has increased pain and bleeding today Limitations: no limitations Related Data Previous Rx's ?Medication ?Instructions ?Recorded erythromycin 5 mg/gram (0.5 %) eye 0.5 inch ophthalmic (eye) QID #3.5 01/09/25 ointment grams tacrolimus 0.1 % topical ointment 1 applic topical BID #30 grams 01/09/25 Allergies Allergy/AdvReac Type Severity Reaction Status Date / Time Sulfa (Sulfonamide Allergy Unknown Verified 02/16/25 09:19 Antibiotics) Review of Systems Review of Systems Systems Reviewed: All systems reviewed, normal except as documented Constitutional Constitutional: Reports system reviewed and no additional complaints, except as documented, Denies fever(s) and Denies headache(s) Eyes Eyes: Reports system reviewed and no additional complaints, except as documented and Denies blurry vision ENT Ears, Nose, Mouth, and Throat: Reports system reviewed and no additional complaints, except as documented, Denies headache(s), Denies nasal congestion and Denies nasal discharge Cardiovascular Cardiovascular: Reports system reviewed and no additional complaints, except as documented, Denies chest pain and Denies dyspnea Respiratory Respiratory: Reports system reviewed and no additional complaints, except as documented, Denies chest congestion, Denies cough and Denies dyspnea Gastrointestinal Gastrointestinal: Reports system reviewed and no additional complaints, except as documented and Denies abdominal pain Genitourinary Genitourinary: Reports system reviewed and no additional complaints, except as documented, Reports abnormal vaginal bleeding and Reports pelvic pain Integumentary/Breasts Skin/Breast: Reports system reviewed and no additional complaints, except as documented and Denies rash Neurologic Neurologic: Reports system reviewed and no additional complaints, except as documented, Reports as per HPI and Denies headache(s) Past Medical History Past Medical History CARDIAC: Negative Congestive Heart Failure RESPIRATORY: Negative Chronic Obstructive Pulmonary Disease (COPD) GENITOURINARY: Negative Renal Disease ENDOCRINE: Negative Diabetes Mellitus Type 1 or Diabetes Mellitus Type 2 Social History SMOKING STATUS: Never smoker ED Exam General Limitations: Present no limitations General appearance: Present alert and in no apparent distress Head Head exam: Present atraumatic, normocephalic and normal inspection Eye Eye exam: Present normal appearance, PERRL and EOMI; Absent conjunctival injection ENT ENT exam: Present normal exam, normal oropharynx and mucous membranes moist Neck Neck exam: Present normal inspection, full ROM and trachea midline Chest Chest inspection: Present normal inspection and symmetric chest wall rise Respiratory Respiratory exam: Present normal lung sounds bilaterally Cardiovascular Cardiovascular exam: Present regular rate, normal rhythm and normal heart sounds Abdominal Exam Abdominal exam: Present soft and normal bowel sounds Extremities Exam Extremities exam: Present normal inspection and full ROM Back Exam Back exam: Present normal inspection and full ROM Neurological Exam Neurological exam: Present alert, oriented X3 and CN II-XII intact Psychiatric Psychiatric exam: Present normal affect and normal mood Skin Skin exam: Present warm, dry, intact and normal color Course Quality Measures none Orders Category Date Time Status Patient Condition Routine Admission 02/16/25 09:38 Ordered SDC [Place in Surgical Day Care] Routine Admission 02/16/25 09:39 Active Activity as Tolerated Routine Care 02/16/25 09:37 Ordered COVID-19 Screening Questionnaire NOW Care 02/16/25 09:35 Active Clip Operative Site as Needed X1 Care 02/16/25 09:36 Active Decision to Admit X1 Care 02/16/25 09:35 Active Insert IV NOW Care 02/16/25 09:36 Active May take PO meds w/sips of H2O PRN Care 02/16/25 09:37 Active NPO NOW Care 02/16/25 09:37 Active Obtain Written Consent For: NOW Care 02/16/25 09:37 Active Sequential Compression Device NOW Care 02/16/25 09:38 Active Consult to Gynecology Stat Cons 02/16/25 09:35 Ordered Diet NPO (NOW) Diet 02/16/25 09:37 Active CBC Stat Lab 02/16/25 09:35 Ordered Comprehensive Metabolic Panel Stat Lab 02/16/25 09:35 Ordered Partial Thromboplastin Time Stat Lab 02/16/25 09:35 Ordered Prothrombin Time with INR Stat Lab 02/16/25 09:35 Ordered Type and Screen Stat Lab 02/16/25 09:36 Ordered Ringers Lactated 1000 ml [Lactated Ringers] 1,000 ml Med 02/16/25 09:38 Ordered IV 125 mls/hr Code Status Routine Oth 02/16/25 09:36 Ordered Vital Signs Vital signs: Vital Signs Temperature 98.3 F 02/16/25 09:27 Pulse Rate 81 02/16/25 09:27 Respiratory Rate 16 02/16/25 09:27 Blood Pressure 108/72 02/16/25 09:27 Pulse Oximetry (%) 98 02/16/25 09:27 Oxygen Delivery Method Room Air 02/16/25 09:27 O2 saturation 98% room air with normal limits Vaginal Bleeding MDM Narrative MDM Narrative: 24-year-old female G2, presents emergency department today for complaints of vaginal bleeding and pelvic pain patient reports that she has been having pain and bleeding intermittently since 29 January. Patient reports no fever nausea or vomiting patient reports that she has increased pain and bleeding today I have reviewed the patient's lab work and imaging from previous visits symptoms are consistent with spontaneous most likely incomplete. Consultation: I spoke with Dr. Georges states he will admit the patient to hospital for D&C I reviewed what will happen with the patient patient states understanding At time of admission patient hemodynamically stable in no distress Patient data External records reviewed:: [facility] previous records Clinical information provided by:: patient Social determinants that could affect healthcare access:: none Patient has the following chronic illnesses:: None How is presenting disease/condition affected by chronic disease/condition?: no chronic disease Evaluation data The following diagnostics were reviewed and interpreted by me:: lab results and radiology exam(s) Lab and/or radiology exams considered but not ordered:: Labs radiology obtain Interpretation Summary: Reviewed by me Medications / Prescriptions Medications or Prescriptions considered but not ordered:: Given Medication administrations:: Medication Administration History Lactated Ringer's (Lactated Ringers) 1,000 mls @ 125 mls/hr IV .Q8H GAMAL Stop: 03/18/25 09:37 Given Consultations Consultation(s) initiated? (list below): Yes Consultation #1 (Physician, Specialty, Details): Dr. Georges Diagnosis Vaginal Bleeding Differential Diagnosis: missed and threatened Most likely diagnosis given after review of the tests above:: Missed Admission Indicated Admission indicated?: indicated Admission Request Was there a request for admission?: Yes Admission Attestation Admission request attestation: Discussed case with [] from Hospitalist service regarding admission. Discussed patients ED course, exam findings, labs, and radiology results. The Hospitalist [agrees,declines] to accept the patient for admission. Disposition Plan Disposition Plan: Admit Discharge Plan Plan Patient Disposition: Admit Acute Care w/in Hospital Discharge Disposition comment: Stable Prescriptions/Referrals Prescriptions/Med Rec: No Action erythromycin 5 mg/gram (0.5 %) ointment 0.5 inch ophthalmic (eye) QID Qty: 3.5 0RF Rx Instructions: Use on eyelid tacrolimus 0.1 % ointment 1 applic topical BID Qty: 30 0RF Problem List Clinical Impression: Incomplete miscarriage, Vaginal bleeding, Pelvic pain Patient/Caregiver Discharge Instructions Print Language: Uzbek Stand Alone Forms: Hilda Award Info., Patient Portal Info Letter PA/CABIN CLEANER Supervising Physician PA/CABIN CLEANER Supervising Physician: Dr. torrez
--- NOTE | 2025-02-16 10:31 | PC.NURSE ---
REPORT GIVEN TO OR NURSE, PATIENT TAKEN TO SURGERY AT THIS TIME.
--- NOTE | 2025-02-16 10:32 | ESHP_ITS ---
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 She initially presented on January 29, 2025, with complaints of vaginal bleeding in early . During her first visit on January 29, Lala's serum hCG was 57,523, and an ultrasound showed an early intrauterine gestational sac corresponding to 6 weeks and 6 days, with no pole or cardiac activity. She returned on February 01, 2025, when a viable intrauterine gestation of 6 weeks and 1 day was noted, with cardiac motion of 100 bpm and a serum hCG of 71,615. Today, Lala reports passing some blood and tissues at home. Her current serum hCG is 27,641, significantly lower than previous values. A transvaginal ultrasound today shows an intrauterine gestation corresponding to 6 weeks and 3 days with no cardiac activity, indicating a loss. Review of Systems Genitourinary: Positive for vaginal bleeding. Meds Home Medications and Allergies Allergies Allergy/AdvReac Type Severity Reaction Status Date / Time Sulfa (Sulfonamide Allergy Unknown Verified 02/16/25 09:19 Antibiotics) Exam - MET[employer]ING [employer] WORKER Vital Signs Temp Pulse Resp BP Pulse Ox O2 Del Method 98.3 F 81 16 108/72 98 Room Air 02/16/25 09:27 02/16/25 09:27 02/16/25 09:27 02/16/25 09:27 02/16/25 09:27 02/16/25 09:27 Constitutional Constitutional: no acute distress Routine HEENT Exam Head: Present normocephalic and atraumatic Eye: Present EOMI and PERRL ENT: Present mucous membranes moist Routine Neck Exam Neck: Present supple and trachea midline Routine Respiratory Exam Respiratory: Present chest non-tender, lungs clear, normal breath sounds and no resp distress Routine Cardiovascular Exam Cardiovascular: Present RRR Routine Abdominal Exam Abdominal: Present soft and normoactive bowel sounds Routine Extremities Exam Extremities: Present full ROM Routine Skin Exam Skin: Present intact and dry Routine Neurological Exam Neurological: Present alert, oriented X3 and CN II-XII intact Routine Psychiatric Exam Psychiatric: Present normal affect and normal thought process 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 Labs Labs: Laboratory, Imaging, and Diagnostic Test Results - Date: 01/29/2025 - Serum hC,523 - Ultrasound: Early intrauterine gestational sac corresponding to 6 weeks and 6 days, no pole, no cardiac activity - Date: 02/01/2025 - Serum hC,615 - Ultrasound: Viable intrauterine gestation, 6 weeks and 1 day, cardiac motion of 100 bpm - Date: 02/16/2025 (Today) - Serum hC,641 - Hemoglobin: 11.3 g/dL - Transvaginal ultrasound: Intrauterine gestation corresponding to 6 weeks and 3 days with no cardiac activity Assessment and Plan Assessment and plan (1) Incomplete : Status: Acute Assessment and plan: Lala, a 24-year-old , presents to the ER for the 5th time in 2 weeks with concerns related to early and vaginal bleeding. Early Loss Assessment: Patient initially presented on 01/29/2025 with vaginal bleeding in early . Serum hCG was 57,523 with ultrasound showing early gestational sac corresponding to 6 weeks 6 days, no pole, no cardiac activity. On 02/01/2025, ultrasound showed viable intrauterine gestation at 6 weeks 1 day with cardiac motion of 100 bpm, and serum hCG was 71,615. Today's presentation (02/16/2025) shows serum hCG of 27,641, with transvaginal ultrasound revealing intrauterine gestation corresponding to 6 weeks 3 days with no cardiac activity. Patient reports passing blood and tissue at home. These findings are consistent with early loss, likely a missed . Plan: - Perform dilation and curettage (D&C) procedure - Informed consent obtained: explained procedure involves clearing uterine contents vaginally under anesthesia, takes approximately 5 minutes, no external incisions or sutures required - Patient to remain NPO - Discharge home approximately one hour post-procedure - Hemoglobin 11.3 g/dL, continue to monitor Quality Measures Quality Measures none
[2025-02-16 10:40] LABS: Basophils % (Auto) 0 % (0-2.5); Eosinophils % (Auto) 1 % (0-10); Hematocrit 33.6 % (36.0-46.0); Hemoglobin 11.8 g/dL (12.0-16.0); Immature Granulocytes % (Auto) 0 % (0-0); Immature Granulocytes Auto 0.01 Thou/mm3 (0.00-0.00); Lymphocytes # (Auto) 1.9 Thou/mm3 (1.0-4.8); Lymphocytes % (Auto) 38 % (10-50); Mean Corpuscular HGB Conc 35.1 g/dl (31.0-37.0); Mean Corpuscular Hemoglobin 30.7 pg (25.0-35.0); Mean Corpuscular Volume 88 fL (80-100); Monocytes # (Auto) 0.4 Thou/mm3 (0.0-0.8); Monocytes % (Auto) 9 % (0-12); Neutrophils # (Auto) 2.6 Thou/mm3 (1.8-7.7); Neutrophils % (Auto) 52 % (37-80); Nucleated Red Blood Cell % 0 /100 WBC (0); Platelet Count 267 Thou/mm3 (140-440); RDW Standard Deviation 39.9 fL (36.4-46.3); Red Blood Count 3.84 Miln/mm3 (4.00-5.20)
[2025-02-16 11:13] LABS: Alanine Aminotransferase 9 U/L (10-49); Albumin, Serum 4.7 gm/dL (3.5-5.0); Albumin/Globulin Ratio 1.8 (1.2-2.2); Alkaline Phosphatase 51 U/L (46-116); Anion Gap 8 (7-16); Aspartate Amino Transferase 14 U/L (0-34); BUN/Creatinine Ratio 17 Ratio (12-20); Bilirubin,Total 1.2 mg/dL (0.3-1.2); Blood Urea Nitrogen 10 mg/dL (9-23); Calcium 8.9 mg/dL (8.3-10.6); Calcium (Corrected) 8.9 mg/dL (8.5-10.1); Carbon Dioxide 22.8 mMol/L (20.0-31.0); Chloride 107 mMol/L (98-107); Creatinine (Component) 0.6 mg/dL (0.6-1.3); Estimated Creatinine Clearance 113.1 mL/min (>60); Globulin 2.6 gm/dL (2.3-3.5); Glucose 89 mg/dL (74-106); Osmolality,Calculated 273 (275-295); Potassium 3.4 mMol/L (3.4-5.1); Sodium 138 mMol/L (136-145); Total Protein 7.3 gm/dL (5.7-8.2); eGFR > 60 See Note
--- NOTE | 2025-02-16 11:17 | ESOP_ITS ---
Operative Note - [facility] Procedure Date of procedure: 02/16/25 Procedure Performed: Suction dilatation and curettage Indication: 24-year-old -0-2-0 with missed at 6 weeks Anesthesia type: General Procedure description: Informed consent was obtained and the patient was taken to the operating room. Identity was confirmed using two patient identifiers. The patient was positioned on the operating table, and general anesthesia was administered. She was then placed in the dorsal lithotomy position using Dong stirrups. The perineum was prepped and draped in the usual sterile fashion. A straight catheter was used to empty the bladder. A weighted speculum was placed in the posterior vaginal fornix, and a right- angle retractor was used to retract the anterior vaginal wall. An atraumatic grasper was used to gently grasp the anterior lip of the cervix, which was placed under traction. Cervical length from the external to internal os was assessed, and a uterine sound was used to measure uterine depth. The cervix was noted to be dilated to approximately 6 mm. A 6 mm suction cannula was introduced through the cervical os, and multiple gentle passes were performed until evacuation of all tissue and blood clots was complete. Endometrial grating was palpated, and the uterus was noted to have contracted appropriately. The suction cannula was removed, and a gentle curettage was performed using a standard curette. All instruments were then withdrawn. Uterine bleeding was minimal. The atraumatic grasper was removed from the cervix, which was visualized and found to be hemostatic. The speculum was removed from the vaginal canal. The patient was then cleaned, undraped, and taken out of the lithotomy position. General anesthesia was reversed, and the patient was transferred to the recovery room in stable and awake condition. The procedure was well tolerated. All instrument, sponge, and lap counts were correct ?2. Specimen: other (POC) Estimated blood loss (ml): 100 Complications: none Surgical staff Operation Date: 02/16/25 10:45 <No data on this case meets the specified criteria> Diagnosis Discharge Diagnosis (1) Incomplete : Status: Acute Problem List Completed Was Problem List Reviewed/Reconciled?: Yes
--- NOTE | 2025-02-16 11:22 | SUR.PHASEI ---
1122 Patient arrived to recovery resting comfortably in [facility], sleeping comfortably able to arouse then drifts back to sleep, on oxygen 6L via oxy mask, breathing unlabored, vital signs stable, denies pain, dressing intact to vaginal area; peripad, no bleeding noted, report received from Josh DAMON and Dr. Hwang
[2025-02-16 11:26] LABS: Partial Thromboplastin Time 27.7 Seconds (22.0-36.0); Prothrombin Time 11.4 Seconds (9.0-12.2)
--- NOTE | 2025-02-16 11:50 | SUR.PHASEII ---
1150 patients at bedside with patient
[2025-02-16] MEDS: ACETAMINOPHEN IVPB 1,000 MG/100 ML VIAL 250 MG IV (11:53)
--- NOTE | 2025-02-16 11:55 | SUR.PHASEII ---
4902 Patient sitting up eating ice chips, tolerating well
--- NOTE | 2025-02-16 12:30 | SUR.PHASEII ---
1230 Patient meets discharge criteria from recovery, awake and alert, breathing unlabored, vital signs stable, dressing intact; no bleeding noted, patient shared her cramping has decreased and tolerable now, drinking water; tolerated well denies nausea, discharge instructions given with the assistance of the telephone interpreter Natalie ID#[id number] to patient and patients , signed discharge instructions. Patient given all her belongings prior to discharge, transported via wheelchair and left in a private vehicle.
== END 2025-02-16 12:30 | disposition home or self-care (01) ==
LOC: SERX 10:14 → S2EX 10:16
PROVIDERS: Nurse Practitioner Primary Care; Emergency Provider Family Medicine; Referring Provider Obstetrics & Gynecology; Visit Provider Obstetrics & Gynecology
PROC: (CPT 58120; principal; 2025-02-16 10:30)
DX: O03.4 Incomplete spontaneous abortion without complication (principal); Z3A.01 Less than 8 weeks gestation of pregnancy
CPT/HCPCS: 59812; 36415; 80053; 85025; 85610; 85730; 86850; 86900; 86901; 99285; A4217; J0131; J1100; J1885; J2210; J2250; J2405; J2704; J3010

== ENCOUNTER 2025-02-26 08:53 | Outpatient (AMB) | payer MEDICAID, SELFPAY ==
[2025-02-26 09:05] VITALS: BP 122/76; PULSE 76; RESP 14; TEMP 36.6; O2SAT 98; BMI 24.8
--- NOTE | 2025-02-26 09:05 | AMB.GYNCLNOT ---
Vital Signs 02/26/25 09:05 Height 1.52 m Height Method Stated Weight 57.663 kg Weight Measurement Method Standing Scale BMI 24.8 BP 122/76 Blood Pressure Source Automatic Cuff Blood Pressure Location Right Upper Arm Position Sitting Respiration 14 Pulse 76 Pulse Source Monitor Temp 97.8 F Temp Source Oral Pulse Oximetry (%) 98 Oxygen Delivery Method Room Air Allergies/Home Meds Allergies & Medications Allergies Sulfa (Sulfonamide Antibiotics) Allergy (Unknown, Verified 02/26/25 09:06) Medication Reconciliation erythromycin 5 mg/gram (0.5 %) eye ointment 0.5 inch ophthalmic (eye) QID #3.5 grams 01/09/25 [Rx Confirmed 02/26/25] tacrolimus 0.1 % topical ointment 1 applic topical BID #30 grams 01/09/25 [Rx Confirmed 02/26/25] Intake Visit Data Collection New Patient or Established: Established Patient (seen at [facility] within 3 years) Reason for Visit:: Postoperative visit following dilatation and curettage for incomplete Seen by Clinical Staff ONLY (RN/MA): No Agricultural Education Teacher Required: Yes Agricultural Education Teacher's name/title: HIPOLITODRA MARTIN Do You Feel Safe at Home: Yes Authorities Contacted: N/A PCP or OBGYN visit in last 3 months: Yes Hx Now: No Are you currently on any form of Control: No Pain Present Currently: Yes Pain Location: Abdomen Pain Scale Used: Granados-Chun/Numerical Pain scale:: 2 Smoking Status Smoking Status: Never smoker 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 Menstrual regularity: regular Flow: normal Monthly: Yes How many days does period last: 5 Age at menarche: 10 Currently sexually active: No If not currently sexually active, have you ever been sexually active: Yes 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 1. Little interest or pleasure in doing things: several days 2. Feeling down, depressed, or hopeless: not at all Total score: 1 PHQ-9 3. Trouble falling or staying asleep, or sleeping too much: Not at all 4. Feeling tired or having little energy: Not at all 5. Poor appetite or overeating: Not at all 6. Feeling bad about yourself - or that you are a failure or have let yourself or your family down: Not at all 7. Trouble concentrating on things, such as reading the newspaper or watching television: Not at all 8. Moving or speaking so slowly that other people could have noticed? - Or the opposite - being so fidgety or restless that you have been moving around a lot more than usual: not at all 9. Thoughts that you would be better off or of hurting yourself in some way: Not at all Total score: 1 Source: Developed by Drs. Shar Lay, Marjorie Stacy, Joe Leblanc and colleagues, with an educational blanca from [employer]. Depression screen completed yes Social History Tobacco History Smoking Status: Never smoker Domestic Abuse History Do You Feel Safe at Home: Yes History of Present Illness HPI Narrative Lala Vidal, a 24-year-old female, presents for a postoperative visit following a dilatation and curettage (D&C) for an incomplete performed on February 16, 2025. The patient was initially seen in the emergency room before undergoing the procedure. Since the surgery, Lala reports that her bleeding has slowed down or stopped. She confirms that she has completed all prescribed medications, including ibuprofen, which she was advised she no longer needs to take. The patient does not report any specific complaints or concerns during this follow-up visit. Regarding future family planning, Lala indicates that she is not currently interested in starting control and may be considering trying for . She was advised that she could start trying as soon as she gets her next menstrual period. Obstetric History - GPAL: A1 L0 - history: - Recent incomplete , underwent dilatation and curettage on February 16, 2025 - Pathology report confirmed products of conception with chorionic villi Medical History - Emergency room visit for incomplete , leading to subsequent dilatation and curettage Surgical History - Dilatation and curettage for incomplete on February 16, 2025 Medications and Supplements - Ibuprofen - Finished - Vitamins Review of Systems Genitourinary: Positive for decreased vaginal bleeding. Review of Systems Review of Systems Systems Reviewed: All systems reviewed, normal except as documented Exam General General Appearance: alert, in no apparent distress and healthy appearing Head Head exam: atraumatic Neck Neck exam: Present normal inspection and trachea midline Chest Chest inspection: Present normal inspection and symmetric chest wall rise External exam: Present normal external exam; Absent tenderness Neuro Neurological exam: Present oriented X3 Psych Psychiatric exam: Present normal affect and normal mood Results Objective Laboratory: - Date: 02/16/2025 - Pathology report (surgical specimen): - Products of conception with chorionic villi - Degenerative changes - Negative for proliferation or significant atypia - Benign decidual tissue with necroinflammatory debris and fibrin Office Procedures OB Clinic LOC & Office Proc's Nursing/Assessment Patient Status: Established Patient OB Clinic Nursing Assessment: Medication Reconciliation, Update PMH in EMR and Vital Signs OB Clinic Coordination of Care: Complex Care and Chronic Disease 1-5, Consent,records obtained, informed consent, Education Simp Pt/Fam, Lab and Imaging orders, Results/Orders obtained and Staff clarify orders Established Patient Charge Established Patient Point Assignment: 105 Established Patient Point Charge: EP Level 3 (80-115) Assessment & Plan Diagnosis / Problem List (1) Pelvic pain: Status: Acute (2) Incomplete miscarriage: Status: Acute (3) Vaginal bleeding: Status: Acute Plan Lala Vidal, 24-year-old female, presenting for postoperative visit following dilatation and curettage for incomplete on February 16, 2025. Status post dilatation and curettage for incomplete Assessment: Patient underwent dilatation and curettage on February 16, 2025, for incomplete . Pathology report from the surgical specimen showed products of conception with chorionic villi, degenerative changes, negative for proliferation or significant atypia, benign decidual tissue with necroinflammatory debris, and fibrin. Patient reports bleeding has slowed down or stopped and has completed all prescribed medications. Plan: - Discontinue ibuprofen - Patient may use tampons as needed - Recommend continuing vitamins - Patient may attempt conception after next menstrual period - Return to clinic as needed
== END 2025-02-26 10:00 | disposition home or self-care (01) ==
LOC: HODSOBC 08:53
PROVIDERS: Supervising Provider Obstetrics & Gynecology; Visit Provider Obstetrics & Gynecology
DX: O03.4 Incomplete spontaneous abortion without complication (principal); Z98.890 Other specified postprocedural states
CPT/HCPCS: 99213; G0463

== ENCOUNTER 2025-06-24 08:07 | Outpatient (AMB) | payer MEDICAID, SELFPAY ==
--- NOTE | 2025-06-24 08:12 | OBCLNT_ITS ---
Vital Signs 06/24/25 08:30 Height 1.52 m Height Method Stated Weight 58.57 kg Weight Measurement Method Standing Scale BMI 25.3 BP 121/77 Blood Pressure Source Automatic Cuff Blood Pressure Location Left Upper Arm Position Sitting Respiration 16 Pulse 88 Pulse Source Monitor Temp 97.9 F Temp Source Oral Pulse Oximetry (%) 98 Oxygen Delivery Method Room Air Allergies/Home Meds Allergies & Medications Allergies Sulfa (Sulfonamide Antibiotics) Allergy (Unknown, Verified 06/24/25 08:31) Medication Reconciliation ondansetron HCl 4 mg tablet 4 mg PO Q8H PRN nausea and vomiting #60 tabs 06/24/25 [Rx] vits no.130-ferrous fum 27 mg iron-folic acid 800 mcg tablet ( Vitamin) 1 tab PO DAILY #60 tabs 06/24/25 [Rx] Intake Visit Data Collection New Patient or Established: Established Patient (seen at [facility] [place] within 3 years) Reason for Visit:: INITIAL CARE Seen by Clinical Staff ONLY (RN/MA): No 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 1. Little interest or pleasure in doing things: not at all 2. Feeling down, depressed, or hopeless: not at all Total score: 0 PHQ-9 3. Trouble falling or staying asleep, or sleeping too much: Not at all 4. Feeling tired or having little energy: Not at all 5. Poor appetite or overeating: Not at all 6. Feeling bad about yourself - or that you are a failure or have let yourself or your family down: Not at all 7. Trouble concentrating on things, such as reading the newspaper or watching television: Not at all 8. Moving or speaking so slowly that other people could have noticed? - Or the opposite - being so fidgety or restless that you have been moving around a lot more than usual: not at all 9. Thoughts that you would be better off or of hurting yourself in some way: Not at all Total score: 0 Source: Developed by Drs. Shar Lay, Marjorie Stacy, Joe Leblanc and colleagues, with an educational blanca from [employer]. Depression screen completed yes Social History Living Situation History Lives With: Family Housing: Apartment Tobacco History Smoking Status: Never smoker Second Hand Smoke Exposure: No Alcohol History Alcohol Intake: Never Domestic Abuse History Do You Feel Safe at Home: Yes History of Present Illness HPI Narrative 24-year-old 3 para 0. SAB 2 for OBI. Patient's last period April 12, 2025. This gives due date January 16, 2026. Patient is very anxious because of her first 2 miscarriages. Patient's last miscarriage was in February. Today she denies any signs and symptoms of a miscarriage including no bleeding no leaking no cramps. Patient denies any existence of chronic illness. She denies surgeries. And she denies social habits. She has increased nausea so she like something for that and she feels tired. 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 Last period April 12, 2025. Estimated due date January 16, 2026. Patient has increased nausea so she would like medication for that. Denies any SAB complaints vitamin s were ordered to the pharmacy. I ordered Zofran 4 mg to take every 8 hours. 60 tabs with 3 refills. Schedule OB sono with Dr. Alves. OB panel today with NIPT. And discussed SAB precautions. Menstrual History Menstrual reliability: definite Flow: normal Menstrual regularity: irregular Monthly: No Age at menarche: 13 On control pills at conception: No Associated symptoms (LMP): Reports fatigue and breast tenderness OB History : 3 Hx Total # of Abortions (Spontaneous & Elective): 2 Infection History & Risk Evaluation History of STDs: chlamydia ([place] 2020) Genetic Screening & History Genetic Screening/Teratology Counseling - Includes patient, baby's father, or anyone in either family with: 1. Patient's age 35 years or older as of estimated date of delivery: No 2. Thalassemia (Japanese, Italian, Mediterranean, or Background); MCV less than 80: No 3. Neural Tube Defect (Meningomyelocele, Spina Bifida, or Anencephaly): No 4. Congenital Heart Defect: No 5. Down Syndrome: No 6. Hari-Sachs (Ashkenazi Tenriism, Cajun, Nepalese Polish): No 7. Emmett Disease (Ashkenazi Tenriism): No 8. Familial Dysautonomia (Ashkenazi Tenriism): No 9. Sickle Cell Disease or Trait (): No 10. Hemophilia or other blood disorders: No 11. Muscular Dystrophy: No 12. Cystic Fibrosis: No 13. [place]'s Chorea: No 14. Mental Retardation/Autism: No 15. Other inherited genetic or chromosomal disorder: No 16. Maternal Metabolic Disorder (EG,TYPE 1 Diabetes, PKU): No 17. Patient or baby's father had a child with defects not listed above: No 18. Recurrent loss or a stillbirth: No 19. Medications (including supplements, vitamins, herbs or otc drugs)/illicit/recreational drugs/alcohol since last menstrual period: No 20. Any other: No Infection History 1. Live with someone with TB or exposed to TB: No 2. Rash or viral illness since last menstrual period: No 3. Hepatitis B,C: No Other (see comments) Source: [employer] Review of Systems Review of Systems Systems Reviewed: All systems reviewed, normal except as documented Constitutional Constitutional: Reports fatigue Endocrine Endocrine: Reports fatigue Exam General Limitations: no limitations General Appearance: alert, in no apparent distress, comfortable, cooperative, healthy appearing, well developed and well groomed Head Head exam: atraumatic, normocephalic and normal inspection Chest Chest inspection: Present normal inspection and symmetric chest wall rise Resp Respiratory exam: Present normal lung sounds bilaterally Card Cardiovascular exam: Present regular rate, normal rhythm and normal heart sounds Abdominal Abdominal exam: Present soft and normal bowel sounds Psych Psychiatric exam: Present normal affect and normal mood Office Procedures OB Clinic LOC & Office Proc's Nursing/Assessment Patient Status: Established Patient OB Clinic Nursing Assessment: Medication Reconciliation, Update PMH in EMR and Vital Signs OB Clinic Coordination of Care: Complex Care and Chronic Disease 1-5, Consent,records obtained, informed consent, Education Simp Pt/Fam, 1 Ins Authorization, Lab and Imaging orders, Results/Orders obtained and Staff clarify orders Special Needs: Heart tones Established Patient Charge Established Patient Point Assignment: 150 Established Patient Point Charge: EP Level 4 (120-155) Assessment & Plan Diagnosis / Problem List (1) Encounter for supervision of high risk in first trimester, antepartum: Status: Acute Plan NIPT with OB panel and A1c today. Schedule with M Dr. Alves for anatomy sono. NIPT and carrier screens today. Discussed SAB precautions. I gave patient Zofran 4 mg Q8 for the nausea and refill prenatals. Discussed comfort measures for nausea and vomiting. And danger signs symptoms return in 4 weeks OB check Additional Plan Follow Up: 4 Weeks (0bc)
[2025-06-24 08:30] VITALS: BP 121/77; PULSE 88; RESP 16; TEMP 36.6; O2SAT 98; BMI 25.3
== END 2025-06-24 09:39 | disposition home or self-care (01) ==
LOC: HODSOBC 08:07
PROVIDERS: Supervising Provider Advanced Practice Midwife; Visit Provider Advanced Practice Midwife
DX: O09.891 Supervision of other high risk pregnancies, first trimester (principal); O21.9 Vomiting of pregnancy, unspecified; Z3A.10 10 weeks gestation of pregnancy
CPT/HCPCS: 99214; G0463

== ENCOUNTER 2025-07-22 08:12 | Outpatient (AMB) | payer MEDICAID, SELFPAY ==
[2025-07-22 08:22] VITALS: BP 120/80; PULSE 81; RESP 14; TEMP 36.4; O2SAT 98; BMI 25.5
--- NOTE | 2025-07-22 08:22 | AMB.OBVISIT ---
Vital Signs 07/22/25 08:22 Height 1.52 m Height Method Stated Weight 58.967 kg Weight Measurement Method Standing Scale BMI 25.5 BP 120/80 Blood Pressure Source Automatic Cuff Blood Pressure Location Left Upper Arm Position Sitting Respiration 14 Pulse 81 Pulse Source Monitor Temp 97.6 F Temp Source Oral Pulse Oximetry (%) 98 Oxygen Delivery Method Room Air Allergies/Home Meds Allergies & Medications Allergies Sulfa (Sulfonamide Antibiotics) Allergy (Unknown, Verified 07/22/25 08:26) Medication Reconciliation vits no.130-ferrous fum 27 mg iron-folic acid 800 mcg tablet ( Vitamin) 1 tab PO DAILY #60 tabs 06/24/25 [Rx Confirmed 07/22/25] ondansetron HCl 4 mg tablet 4 mg PO Q8H PRN nausea and vomiting #60 tabs 07/22/25 [Rx] Intake Visit Data Collection New Patient or Established: Established Patient (seen at [facility] within 3 years) Reason for Visit:: CARE Seen by Clinical Staff ONLY (RN/MA): No 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 1. Little interest or pleasure in doing things: not at all 2. Feeling down, depressed, or hopeless: not at all Total score: 0 PHQ-9 3. Trouble falling or staying asleep, or sleeping too much: Not at all 4. Feeling tired or having little energy: Not at all 5. Poor appetite or overeating: Not at all 6. Feeling bad about yourself - or that you are a failure or have let yourself or your family down: Not at all 7. Trouble concentrating on things, such as reading the newspaper or watching television: Not at all 8. Moving or speaking so slowly that other people could have noticed? - Or the opposite - being so fidgety or restless that you have been moving around a lot more than usual: not at all 9. Thoughts that you would be better off or of hurting yourself in some way: Not at all Total score: 0 Source: Developed by Drs. Shar Lay, Marjorie Stacy, Joe Leblanc and colleagues, with an educational blanca from [employer]. 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 Last period April 12, 2025. Estimated due date January 16, 2026. Patient has increased nausea so she would like medication for that. Denies any SAB complaints vitamins were ordered to the pharmacy. I ordered Zofran 4 mg to take every 8 hours. 60 tabs with 3 refills. Schedule OB sono with Dr. Alves. OB panel today with NIPT. And discussed SAB precautions. 07/22/25 <del>?</del> 14w 3d 58.967 kg 120/80 absent unknown 14 145 absent No OB complaints. Wants a refill on her Diclegis. Denies SAB complaints. Discussed NIPT results. Follow-up in MFM appointment. Discussed SAB precautions. Return in 4 weeks for AFP and OB check MISSY Calculator Estimated Delivery Date Method Current WG Current Estimate 01/17/26 LMP (Certain) 14w 3d Notes Visit Date: 07/22/25 Last Updated by: Yolande Buenrostro CNM 07/22: NIPT-,sma-,cf- Visit Date: 06/24/25 Last Updated by: Yolande Buenrostro, MARCELL 24 yo . LMP: 04/12/25. EDC: 01/16/26. PAP:wnl, GC/CT-. RPR:: reactive, 1:1. TPA-. repeat at 28 week, RUB NI, O+,abs-, HIV-, HBSAG-, HC-, GC/CT-, /UT-, Office Procedures OBC Clinic LOC & Office Proc's Nursing/Assessment Patient Status: Established Patient OB Clinic Nursing Assessment: Medication Reconciliation, Update PMH in EMR and Vital Signs OB Clinic Coordination of Care: Complex Care and Chronic Disease 1-5, Consent,records obtained, informed consent, Education Simp Pt/Fam, 1 Ins Authorization, Lab and Imaging orders, Results/Orders obtained and Staff clarify orders Special Needs: Heart tones Established Patient Charge Established Patient Point Assignment: 150 Established Patient Point Charge: EP Level 4 (120-155) Assessment & Plan Diagnosis / Problem List (1) Encounter for supervision of high risk in second trimester, antepartum: Status: Acute Plan discuss NIPT., AFP NV, f/u mfm appointment. RTC 4 refill. refill zofran for nausea Additional Plan Follow Up: 4 Weeks (AFP/obc)
== END 2025-07-22 09:15 | disposition home or self-care (01) ==
LOC: HODSOBC 08:12
PROVIDERS: Supervising Provider Advanced Practice Midwife; Visit Provider Advanced Practice Midwife
DX: O09.92 Supervision of high risk pregnancy, unspecified, second trimester (principal); Z3A.14 14 weeks gestation of pregnancy
CPT/HCPCS: 99214; G0463

== ENCOUNTER 2025-07-27 15:33 | Emergency (ER) | payer MEDICAID, SELFPAY ==
[2025-07-27 15:35] VITALS: BMI 25.4
[2025-07-27 15:56] VITALS: BP 103/69; PULSE 72; RESP 16; TEMP 37.6; O2SAT 98
--- NOTE | 2025-07-27 16:50 | EDNOTE_ITS ---
<Statement entered by Marian Horner MD - 08/11/25 14:18> As co-signing physician, I was present and available for consult prn. I concur with the plan and care as documented by the midlevel provider. ED Allergic Reaction RME/HPI General Chief complaint: Allergic Reaction Stated complaint: RASH ALL OVER BODY; 15 WEEKS OB Time Seen by Provider: 07/27/25 15:38 Arrival date/time: 07/27/25 15:33 This is a 25-year-old female that comes into the emergency room with complaints of rash to her right upper arm. Patient states she feels like she got bit by a bug. [place] a park. Patient states she feels itchy. Patient denies any trouble breathing or any other complaints. Related Data Previous Rx's ?Medication ?Instructions ?Recorded vits no.130-ferrous fum 1 tab PO DAILY #60 ta bs 06/24/25 27 mg iron-folic acid 800 mcg tablet ( Vitamin) ondansetron HCl 4 mg tablet 4 mg PO Q8H PRN nausea and 07/22/25 vomiting #60 tabs diphenhydramine HCl 25 mg capsule 25 mg PO TID PRN all ergic reaction 07/27/25 #20 caps Allergies Allergy/AdvReac Type Severity Reaction Status Date / Time Sulfa (Sulfonamide Allergy Unknown Verified 07/27/25 15:40 Antibiotics) Review of Systems Review of Systems Systems Reviewed: All systems reviewed, normal except as documented Past Medical History Past Medical History CARDIAC: Negative Congestive Heart Failure RESPIRATORY: Negative Chronic Obstructive Pulmonary Disease (COPD) GENITOURINARY: Negative Renal Disease ENDOCRINE: Negative Diabetes Mellitus Type 1 or Diabetes Mellitus Type 2 Social History SMOKING STATUS: Never smoker ED Exam Narrative Physical exam: VITAL SIGNS: Reviewed. GENERAL APPEARANCE: Alert and interactive, follows commands, no acute distress, HEAD AND FACE: Non-traumatic. ENT: PERRL, conjuctiva pink and clear, eyelid no trauma, Mucous membrane moist. NECK: Supple, nontender, no nuchal rigidity. CHEST: No tenderness, no crepitus, no paradoxical movement, no retractions. LUNGS: Clear, well ventilated, symmetric, no rales, no wheezing, no rhonchi, no stridor, good breath sounds bilaterally. HEART: Regular rate, regular rhythm, no murmur, no gallops. ABDOMEN: Soft, nondistended, no guarding, nontender NEUROLOGICAL: Gross motor function intact sensory function intact, Appropriate for age. MUSCULOSKELETAL: low back nontender, full range of motion. EXTREMITIES: No redness no swelling no skin breakdown on bilateral foot and leg. Distal neurovascular status intact bilateral foot SKIN: Color pink, dry, patient has an area approximately 2 cm on right upper arm that slightly raised and erythemic. Course Quality Measures none Orders Category Date Time Status DiphenhydrAMINE [Benadryl] Med 07/27/25 16:08 Discontinued 50 mg PO X1 ONE Vital Signs Vital signs: Vital Signs Temperature 99.6 F 07/27/25 15:56 Pulse Rate 72 07/27/25 15:56 Respiratory Rate 16 07/27/25 15:56 Blood Pressure 103/69 07/27/25 15:56 Pulse Oximetry (%) 98 07/27/25 15:56 Oxygen Delivery Method Room Air 07/27/25 15:56 Allergic Reaction MDM Narrative MDM Narrative:: Patient likely got a bug bite. Patient could have been bitten by mosquito. Area does appear better with Benadryl dose. Patient states she feels less itchy. Patient is comfortable going home at. I told patient to follow-up primary provider in 1 to 2 days come back to emergency room symptoms change or worsen. Dragon dictation: Although this document has been carefully reviewed, there may still be some phonetic and other typographical errors. These errors are purely grammatical due to imperfections in the software program and should not be construed in any way to compromise the substance of the patient's medical care during this visit. Patient data External records reviewed:: [facility] previous records Clinical information provided by:: parent Social determinants that could affect healthcare access:: none Patient has the following chronic illnesses:: None How is presenting disease/condition affected by chronic disease/condition?: no chronic disease Evaluation data The following diagnostics were reviewed and interpreted by me:: other (specify) (None) Lab and/or radiology exams considered but not ordered:: None Interpretation Summary: See note Medications / Prescriptions Medications or Prescriptions considered but not ordered:: None Medication administrations:: Medication Administration History Discontinued Medications Diphenhydramine HCl (Diphenhydramine 25 Mg Capsule) 50 mg PO X1 ONE Stop: 07/27/25 16:09 Last Admin: 07/27/25 16:14 Dose: 50 mg Documented By: OA See MAR Consultations Consultation(s) initiated? (list below): No Diagnosis Most likely diagnosis given after review of the tests above:: Allergic reaction Admission Indicated Admission indicated?: not indicated Admission Request Was there a request for admission?: No Disposition Plan Disposition Plan: Discharge Discharge Attestation Discharge Attestation: The patient and all family members were given an opportunity to ask questions and understood the discharge instructions. Discharge instructions specifically effects, indications for sooner follow up or return to the emergency department, and the expected course of current diagnosis. Patient condition: Stable Discharge Plan Plan Patient Disposition: HOME (Self Care) Patient condition on transfer: Stable Prescriptions/Referrals Prescriptions/Med Rec: New diphenhydramine HCl 25 mg capsule 25 mg PO TID PRN (Reason: allergic reaction) Qty: 20 0RF No Action ondansetron HCl 4 mg tablet 4 mg PO Q8H PRN (Reason: nausea and vomiting) Qty: 60 3RF Vitamin 27 mg iron- 800 mcg tablet 1 tab PO DAILY Qty: 60 2RF Problem List Clinical Impression: Allergic reaction Patient/Caregiver Discharge Instructions Discharge Activity: activity as tolerated Education Materials: ED Medicine Reaction: Allergic Additional Instructions: Chi un daniele con moore medico de cabecera en las proximas 24-48 horas. Regrese a la romario de emergencias si hay evidencia de que los signos o sintomas empeoran. Print Language: Malay Stand Alone Forms: Hilda Award Info., Patient Portal Info Letter PA/[employer] OPERATOR Supervising Physician PA/ALHAJI Supervising Physician: shalini
== END 2025-07-27 16:56 | disposition home or self-care (01) ==
LOC: SERX 16:58
PROVIDERS: Emergency Provider Emergency Medicine
DX: R21 Rash and other nonspecific skin eruption (principal)
CPT/HCPCS: 99282; A9270

== ENCOUNTER 2025-08-19 08:45 | Outpatient (AMB) | payer MEDICAID, SELFPAY ==
[2025-08-19 08:55] VITALS: PULSE 89; RESP 16; TEMP 36.4; O2SAT 98; BMI 25.9
--- NOTE | 2025-08-19 08:55 | AMB.OBVISIT ---
Vital Signs 08/19/25 08:55 Height 1.52 m Height Method Stated Weight 60.044 kg Weight Measurement Method Standing Scale BMI 25.9 Blood Pressure Source Automatic Cuff Blood Pressure Location Left Upper Arm Position Sitting Respiration 16 Pulse 89 Pulse Source Monitor Temp 97.6 F Temp Source Oral Pulse Oximetry (%) 98 Oxygen Delivery Method Room Air Allergies/Home Meds Allergies & Medications Allergies Sulfa (Sulfonamide Antibiotics) Allergy (Unknown, Verified 08/19/25 09:00) Medication Reconciliation vits no.130-ferrous fum 27 mg iron-folic acid 800 mcg tablet ( Vitamin) 1 tab PO DAILY #60 tabs 06/24/25 [Rx Confirmed 08/19/25] ondansetron HCl 4 mg tablet 4 mg PO Q8H PRN nausea and vomiting #60 tabs 07/22/25 [Rx Confirmed 08/19/25] Intake Visit Data Collection New Patient or Established: Established Patient (seen at [facility] within 3 years) Reason for Visit:: CARE Seen by Clinical Staff ONLY (RN/MA): No User Interface Engineer Required: No Do You Feel Safe at Home: Yes Authorities Contacted: N/A PCP or OBGYN visit in last 3 months: Yes Hx Now: Yes Are you currently on any form of Control: No Pain Present Currently: No Pain Scale Used: Granados-Chun/Numerical Pain scale:: 0 Smoking Status Smoking Status: Never smoker Immunizations Flu Vaccine in the Last 12 Months: Yes Flu Vaccine Exclusion Criteria: Already Received Questionnaires Covid-19 Vaccine Questionnaire Has patient been vacinated for Covid-19 Have you been vacinated for Covid-19: Yes PHQ-9 PHQ-2 Over the last 2 weeks, how often have you been bothered by any of the following problems? 1. Little interest or pleasure in doing things: not at all 2. Feeling down, depressed, or hopeless: not at all Total score: 0 PHQ-9 3. Trouble falling or staying asleep, or sleeping too much: Not at all 4. Feeling tired or having little energy: Not at all 5. Poor appetite or overeating: Not at all 6. Feeling bad about yourself - or that you are a failure or have let yourself or your family down: Not at all 7. Trouble concentrating on things, such as reading the newspaper or watching television: Not at all 8. Moving or speaking so slowly that other people could have noticed? - Or the opposite - being so fidgety or restless that you have been moving around a lot more than usual: not at all 9. Thoughts that you would be better off or of hurting yourself in some way: Not at all Total score: 0 Source: Developed by Drs. Shar Lay, Marjorie Stacy, Joe Leblanc and colleagues, with an educational blanca from [employer]. 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 Last period April 12, 2025. Estimated due date January 16, 2026. Patient has increased nausea so she would like medication for that. Denies any SAB complaints vitamins were ordered to the pharmacy. I ordered Zofran 4 mg to take every 8 hours. 60 tabs with 3 refills. Schedule OB sono with Dr. Alves. OB panel today with NIPT. And discussed SAB precautions. 07/22/25 <del>?</del> 14w 3d 58.967 kg 120/80 absent unknown 14 145 absent No OB complaints. Wants a refill on her Diclegis. Denies SAB complaints. Discussed NIPT results. Follow-up in M appointment. Discussed SAB precautions. Return in 4 weeks for AFP and OB check 08/19/25 <del>?</del> 18w 3d 60.044 kg absent unknown 18 145 absent No OB complaints. Positive movement. Patient will have an ultrasound in September. Discussed labor precautions. And AFP today. Return in 4 weeks OB check MISSY Calculator Estimated Delivery Date Method Current WG Current Estimate 01/17/26 LMP (Certain) 18w 3d Notes Visit Date: 07/22/25 Last Updated by: Yolande Buenrostro CNM 07/22: NIPT-,sma-,cf- Visit Date: 06/24/25 Last Updated by: Yolande Buenrostro CNM 24 yo . LMP: 04/12/25. EDC: 01/16/26. PAP:wnl, GC/CT-. RPR:: reactive, 1:1. TPA-. repeat at 28 week, RUB NI, O+,abs-, HIV-, HBSAG-, HC-, GC/CT-, /UT-, Office Procedures OBC Clinic LOC & Office Proc's Nursing/Assessment Patient Status: Established Patient OB Clinic Nursing Assessment: Medication Reconciliation, Update PMH in EMR and Vital Signs OB Clinic Coordination of Care: Complex Care and Chronic Disease 1-5, Consent,records obtained, informed consent, Education Simp Pt/Fam, 1 Ins Authorization, Lab and Imaging orders, Results/Orders obtained and Staff clarify orders Special Needs: Heart tones Established Patient Charge Established Patient Point Assignment: 150 Established Patient Point Charge: EP Level 4 (120-155) Assessment & Plan Diagnosis / Problem List (1) Encounter for supervision of high risk in second trimester, antepartum: Status: Acute Plan aFP today. Discussed labor precautions. MFM appointment in September Additional Plan Follow Up: 4 Weeks (obc)
== END 2025-08-19 09:28 | disposition home or self-care (01) ==
LOC: HODSOBC 08:45
PROVIDERS: Supervising Provider Advanced Practice Midwife; Visit Provider Advanced Practice Midwife
DX: O09.92 Supervision of high risk pregnancy, unspecified, second trimester (principal); Z3A.18 18 weeks gestation of pregnancy
CPT/HCPCS: 99214; G0463

== ENCOUNTER 2025-09-17 10:45 | Outpatient (AMB) | payer MEDICAID, SELFPAY ==
[2025-09-17 11:02] VITALS: BP 117/77; PULSE 99; RESP 18; TEMP 36.5; O2SAT 98; BMI 27.6
--- NOTE | 2025-09-17 11:02 | OBCLNT_ITS ---
Vital Signs 09/17/25 11:02 Height 1.52 m Height Method Stated Weight 63.957 kg Weight Measurement Method Standing Scale BMI 27.6 BP 117/77 Blood Pressure Source Automatic Cuff Blood Pressure Location Left Upper Arm Position Sitting Respiration 18 Pulse 99 Pulse Source Monitor Temp 97.7 F Temp Source Oral Pulse Oximetry (%) 98 Oxygen Delivery Method Room Air Allergies/Home Meds Allergies & Medications Allergies Sulfa (Sulfonamide Antibiotics) Allergy (Unknown, Verified 09/17/25 11:03) Medication Reconciliation vits no.130-ferrous fum 27 mg iron-folic acid 800 mcg tablet ( Vitamin) 1 tab PO DAILY #60 tabs 06/24/25 [Rx Confirmed 09/17/25] ondansetron HCl 4 mg tablet 4 mg PO Q8H PRN nausea and vomiting #60 tabs 07/22/25 [Rx Confirmed 09/17/25] Immunizations Immunizations Flu Vaccine in the Last 12 Months: No Flu Vaccine Exclusion Criteria: Already Received Care OB Visit Log OB Flowsheet Initial Weight: Not Recorded Date -?-?-?-?-?-?-?-?-?-?-?-?- EGA Weight BP Alb Glu CTX Pres Fundal ht FHR Mov Dilation Station Effacement Hx Notes Visit Note 06/24/25 -?-?-?-?-?-?-?-?-?-?-?-?- 10w 3d 58.57 kg 121/77 absent unknown 11 145 absent 24-year-old 3 para 0 for OBI. Last period April 12, 2025. Estimated due date January 16, 2026. Patient has increased nausea so she would like medication for that. Denies any SAB complaints vitamin s were ordered to the pharmacy. I ordered Zofran 4 mg to take every 8 hours. 60 tabs with 3 refills. Schedule OB sono with Dr. Alves. OB panel today with NIPT. And discussed SAB precautions. 07/22/25 -?-?-?-?-?-?-?-?-?-?-?-?- 14w 3d 58.967 kg 120/80 absent unknown 14 145 absent No OB complaints. Wants a refill on her Diclegis. Denies SAB complaints. Discussed NIPT results. Follow-up in MFM appointment. Discussed SAB precautions. Return in 4 weeks for AFP and OB check 08/19/25 -?-?-?-?-?-?-?-?-?-?-?-?- 18w 3d 60.044 kg absent unknown 18 145 abs ent No OB complaints. Positive movement. Patient will hav e an ultrasound in September. Discussed labor precautions. And AFP today. Return in 4 weeks OB check 09/17/25 -?-?-?-?-?-?-?-?-?-?-?-?- 22w 4d 63.957 kg 117/77 absent unknown 22 145 active No OB complaints. Doing well. Denies leaking, bleeding, cramps. Patient has maternal- med icine appointment on the ird trimester labs next visit. Keep appointment with maternal- medicine. labor precautions reviewed. Return in 4 weeks MISSY Calculator Estimated Delivery Date Method Current WG Current Estimate 01/17/26 LMP (Certain) 22w 4d Notes Visit Date: 09/17/25 Last Updated by: Yolande Buenrostro CNM AFP- Visit Date: 07/22/25 Last Updated by: Yolande Buenrostro CNM 07/22: NIPT-,sma-,cf- Visit Date: 06/24/25 Last Updated by: Yolande Buenrostro CNM 24 yo . LMP: 04/12/25. EDC: 01/16/26. PAP:wnl, GC/CT-. RPR:: reactive, 1:1. TPA-. repeat at 28 week, RUB NI, O+,abs-, HIV-, HBSAG-, HC-, GC/CT-, /262UT-, Office Procedures OBC Clinic LOC & Office Proc's Nursing/Assessment Patient Status: Established Patient OB Clinic Nursing Assessment: Medication Reconciliation, Update PMH in EMR and Vital Signs OB Clinic Coordination of Care: Complex Care and Chronic Disease 1-5, Consent,records obtained, informed consent, Education Simp Pt/Fam, 1 Ins Authorization, Lab and Imaging orders, Results/Orders obtained and Staff clarify orders Special Needs: Heart tones Established Patient Charge Established Patient Point Assignment: 150 Established Patient Point Charge: EP Level 4 (120-155) Assessment & Plan Diagnosis / Problem List (1) Encounter for supervision of high risk in second trimester, antepartum: Status: Acute Plan Return in 4 weeks OB check. Third trimester labs next visit. Discussed AFP is negative. Discussed labor precautions Additional Plan Follow Up: 4 Weeks (obc)
== END 2025-09-17 11:20 | disposition home or self-care (01) ==
LOC: HODSOBC 10:45
PROVIDERS: Supervising Provider Advanced Practice Midwife; Visit Provider Advanced Practice Midwife
DX: O09.92 Supervision of high risk pregnancy, unspecified, second trimester (principal); Z3A.22 22 weeks gestation of pregnancy
CPT/HCPCS: 90471; 99214; G0463